=== PATIENT | female | born 1935 | race Caucasian/White ===

== ENCOUNTER 2016-06-24 08:10 | Inpatient (IN) | payer MEDICARE, OTHER ==
[2016-06-24] VITALS (7 sets, daily range): BP systolic 124–173; BP diastolic 68–79; PULSE 62–69; RESP 18–20; Ht 170.2 cm; Wt 90.4 kg
[~2016-06-24] VITALS: Ht 170.2 cm; Wt 90.4 kg
[~2016-06-24 08:10] MED LIST: GLIM4TAB PO; LEVE500T8 PO; METO50TA16 PO; NATE60TA PO; SIMV20TA6 PO
[2016-06-24] MEDS ORDERED: ONDANSETRON 4 MG INJ IV PRN (12:00)
[2016-06-24] MEDS ORDERED: morphine 2 MG INJ IV PRN (12:00)
--- NOTE | 2016-06-24 12:34 | QN ---
Documentation Comment [facility] I was called about this patient this am for ? increased weakness on the left and left lower extremity 'tremor'. CT was performed and showed a tiny (<5mm) focus of hyperdensity in resection cavity. This was thought to be new; repeat CT this am shows stable hyperdensity (possibly smaller). The tremor is resolved , and family states that the patient's left sided complaints are at her baseline. She was transferred to telemetry. In my opinion this small hyperdensity is unlikely to be new and is most likely more visible due to variations in imaging acquisition protocol (ie gantry effect); even if it is a new hemorrhage it is not clinically significant. Furthermore, on follow up imaging it is stable/ unchanged. It might be best to avoid anti-coagulation for 48 hours just in case. She should be seen in follow up by neurology also for possible seizure breakthrough (she is already on Keppra). However, no neurosurgical intervention is contemplated for this patient and from the neurosurgical perspective there is no contraindication to resumption of diet, therapy and/or ARU, etc. Thank you. CHEO BAL MD Jun 24, 2016 12:34
[2016-06-24 13:43] LABS: CALCIUM 8.9 mg/dl (8.4-10.2); CREATININE 0.58 mg/dl (0.44-1.00)
[2016-06-24] MEDS ORDERED: GLUCOSE GEL 15 GRAM TUBE PO PRN ×2 (17:00)
[2016-06-24] MEDS ORDERED: GLUCAGON 1 MG INJ IM PRN (17:00)
[2016-06-24] MEDS ORDERED: GLUCOSE GEL 15 GRAM TUBE BUCCAL PRN (17:00)
[2016-06-24] MEDS ORDERED: DEXTROSE 50% 50 ML SYRINGE IV PRN ×2 (17:00)
[2016-06-24] MEDS: metFORMIN 500 MG TAB PO SCH (17:26)
[2016-06-24] MEDS: NATEGLINIDE 60 MG TAB PO SCH (17:26)
[2016-06-24] MEDS: INSULIN ASPART [NOVOLOG] 3 ML PEN SC SCH ×2 (17:33→20:55)
[2016-06-24] MEDS: ATORVASTATIN 20 MG TAB PO SCH (21:38)
[2016-06-25] VITALS (12 sets, daily range): BP systolic 127–144; BP diastolic 61–71; PULSE 64–67; RESP 20
[2016-06-25] MEDS: ACCUCHECK XX SCH (02:00)
[2016-06-25 07:04] LABS: BASOPHILS % 0.3 % (0.0-2.0); EOSINOPHILS # 0.2 10^3/ul (0.0-0.5); EOSINOPHILS % 1.8 % (0.0-7.0); HEMATOCRIT 37.7 % (37.0-47.0); HEMOGLOBIN 12.5 g/dl (12.0-16.0); LYMPHOCYTES # 3.1 10^3/ul (0.8-2.9); LYMPHOCYTES % 28.3 % (15.0-51.0); MEAN CORPUSCULAR HEMOGLOBIN 27.7 pg (29.0-33.0); MEAN CORPUSCULAR HGB CONC 33.2 g/dl (32.0-37.0); MEAN CORPUSCULAR VOLUME 83.2 fl (82.0-101.0); MONOCYTE # 0.9 10^3/ul (0.3-0.9); MONOCYTES % 7.7 % (0.0-11.0); NEUTROPHIL # 6.8 10^3/ul (1.6-7.5); NEUTROPHILS % 61.9 % (39.0-77.0); PLATELET COUNT 289 10^3/UL (140-440); RED BLOOD COUNT 4.53 10^6/ul (4.20-5.40); RED CELL DISTRIBUTION WIDTH 17.1 % (11.5-14.5)
[2016-06-25 07:21] LABS: POTASSIUM 4.3 mmol/L (3.5-5.1)
[2016-06-25 07:22] LABS: CONDITION 1; LH ANALYZER COMMENTS 1
[2016-06-25 07:24] LABS: CREATININE 0.68 mg/dl (0.44-1.00)
[2016-06-25 07:25] LABS: CALCIUM 9.1 mg/dl (8.4-10.2)
[2016-06-25] MEDS ORDERED: GLIMEPIRIDE 4 MG TAB PO SCH (07:25)
[2016-06-25] MEDS: metFORMIN 500 MG TAB PO SCH ×2 (08:40→17:47)
[2016-06-25] MEDS: ACETAMINOPHEN 325 MG TAB PO PRN ×2 (08:40→22:40)
[2016-06-25] MEDS: NATEGLINIDE 60 MG TAB PO SCH ×3 (08:41→17:47)
[2016-06-25] MEDS: LEVETIRACETAM 500 MG TAB PO SCH (08:41)
[2016-06-25] MEDS: METOPROLOL (XL) 50 MG TAB PO SCH (08:41)
[2016-06-25] MEDS: INSULIN ASPART [NOVOLOG] 3 ML PEN SC SCH ×4 (08:43→21:00)
--- NOTE | 2016-06-25 12:14 | HP ---
Date/Time of Note Date/Time of Note DATE: 06/25/16 TIME: 12:11 Assessment/Plan VTE Prophylaxis VTE Prophylaxis Intervention: other Lines/Catheters IV C[facility] Type (from [facility] Saline Lock Assessment/Plan Chief Complaint/Hosp Course 1) intracranial hemorrhage - monitor - appreciate neurosurgery input 2) right shoulder pain - check xray of right shoulder - monitor clinically Problems: HPI/ROS Admit Date/Time Admit Date/Time Jun 24, 2016 at 08:10 Hx of Present Illness Patient previously admitted for intracranial mass, s/p biopsy, was sent to acute rehab for debilitation. Patient is transferred back to the acute hospital for increasing headache and evidence of acute intracranial hemorrhage. Patient also complain of right shoulder pain PMH/Family/Social Past Medical History brain tumor, biopsy result pending Past Surgical History Past Surgical Hx: bowel resection, other Social History Smoking Status: Never smoker Exam/Review of Systems Vital Signs Vitals Vital Signs Date Time Temp Pulse Resp B/P Pulse Ox O2 Delivery O2 Flow Rate FiO2 06/25/16 11:23 97.7 65 20 127/61 94 06/24/16 12:00 Room Air Intake and Output 06/24/16 06/24/16 06/25/16 15:00 23:00 07:00 Intake Total 420 ml 100 ml Balance 420 ml 100 ml Exam Constitutional: alert, well developed Head: atraumatic, normocephalic Respiratory: clear to auscultation Cardiovascular: regular rate and rhythm Gastrointestinal: non-tender, soft Extremities: normal pulses Labs Result Diagram: 06/25/16 0603 06/25/16 0603 Medications Medications Current Medications Morphine Sulfate (morphine) 2 mg Q4H PRN IV PAIN; Start 06/24/16 at 12:00 Ondansetron HCl (Zofran Inj) 4 mg Q6H PRN IV NAUSEA AND/OR VOMITING; Start at 12:00 Levetiracetam (Keppra) 500 mg DAILY PO Last administered on 06/25/16 08:41; Admin Dose 500 MG; Start 06/25/16 at 09:00 Metoprolol Succinate (Toprol Xl) 50 mg DAILY PO Last administered on 06/25/16 08:41; Admin Dose 50 MG; Start 06/25/16 at 09:00 Atorvastatin Calcium (Lipitor) 20 mg HS PO Last administered on 06/24/16at 21: 38; Admin Dose 20 MG; Start 06/24/16 at 21:00 Acetaminophen (Tylenol Tab) 650 mg Q6H PRN PO PAIN AND OR ELEVATED TEMP Last administered on 06/25/16t 08:40; Admin Dose 650 MG; Start 06/24/16 at 17:00 Diagnostic Test (Pha) (Accucheck) 1 ea 02 XX ; Start 06/25/16 at 02:00 Miscellaneous Information 1 ea NOTE XX ; Start 06/24/16 at 17:00 Glucose (Glutose) 15 gm Q15M PRN PO DECREASED GLUCOSE; Start 06/24/16 at 17:00 Glucose (Glutose) 22.5 gm Q15M PRN PO DECREASED GLUCOSE; Start 06/24/16 at 17: 00 Dextrose (D50w Syringe) 25 ml Q15M PRN IV DECREASED GLUCOSE; Start 06/24/16 at 17:00 Dextrose (D50w Syringe) 50 ml Q15M PRN IV DECREASED GLUCOSE; Start 06/24/16 at 17:00 Glucagon (Glucagen) 1 mg Q15M PRN IM DECREASED GLUCOSE; Start 06/24/16 at 17: 00 Glucose (Glutose) 15 gm Q15M PRN BUCCAL DECREASED GLUCOSE; Start 06/24/16 at 17:00 LEIGHANN DAHL Jun 25, 2016 12:13
--- NOTE | 2016-06-25 18:11 | RADRPT ---
PROCEDURE: XR right Shoulder. CLINICAL INDICATION: Pain TECHNIQUE: 3 views of the right shoulder are available for review. COMPARISON: None available FINDINGS: There is no acute fracture or dislocation. The glenohumeral and acromioclavicular joints are intact . There is mild joint space narrowing with osseous spurring of the acromioclavicular joint. A later al downsloping morphology of the acromion is visualized. There are small calcific densities adjacent to the greater tuberosity of the humeral head measuring up to 7 mm likely corresponding with small foci of hydroxyapatite deposition. The soft tissues are u nremarkable. There is no fracture of the visualized right ribs. The visualized right lung is clear. RPTAT: EE IMPRESSION: 1. No acute bony abnormality. 2. Small foci of hydroxyapatite deposition adjacent to the greater tuberosity of the humeral head m easuring up to 7 mm. 3. Mild osteoarthrosis of the acromioclavicular joint.. .Lily Morales MD, MD Date Time Electronically viewed and signed by .Lily Morales MD, on 06/25/2016 17:02 .T/
[2016-06-25] MEDS: ATORVASTATIN 20 MG TAB PO SCH (20:57)
[2016-06-26] VITALS (10 sets, daily range): BP systolic 130–175; BP diastolic 72–89; PULSE 66–77; RESP 18–20
[2016-06-26] MEDS: ACCUCHECK XX SCH (02:00)
[2016-06-26] MEDS ORDERED: traMADol 50 MG TAB PO PRN (08:30)
[2016-06-26] MEDS: metFORMIN 500 MG TAB PO SCH ×2 (08:39→17:20)
[2016-06-26] MEDS: NATEGLINIDE 60 MG TAB PO SCH ×3 (08:39→17:20)
[2016-06-26] MEDS: METOPROLOL (XL) 50 MG TAB PO SCH (08:40)
[2016-06-26] MEDS: LEVETIRACETAM 500 MG TAB PO SCH (08:40)
[2016-06-26] MEDS: INSULIN ASPART [NOVOLOG] 3 ML PEN SC SCH ×4 (09:24→20:53)
--- NOTE | 2016-06-26 13:16 | PN ---
Date/Time of Note Date/Time of Note DATE: 06/26/16 TIME: 13:15 Assessment/Plan VTE Prophylaxis VTE Prophylaxis Intervention: contraindicated Lines/Catheters IV Catheter Type (from Nrsg): Saline Lock Urinary Cath still in place: No Reason Cath still needed: skin wounds contaminated by urine Assessment/Plan Chief Complaint/Hosp Course 1) intracranial hemorrhage - monitor - appreciate neurosurgery input - consult neurology per neurosurgery 2) right shoulder pain - XRAY show no abnormality - monitor clinically Problems: Subjective 24 Hr Interval Summary Free Text/Dictation Patient is doing fine, has no complaints Exam/Review of Systems Vital Signs Vitals Vital Signs Date Time Temp Pulse Resp B/P Pulse Ox O2 Delivery O2 Flow Rate FiO2 06/26/16 12:08 73 06/26/16 12:02 98.0 18 175/89 98 06/24/16 12:00 Room Air Intake and Output 06/25/16 06/25/16 06/26/16 15:00 23:00 07:00 Intake Total 720 ml 120 ml Balance 720 ml 120 ml Exam Constitutional: alert, well developed Neck: supple Respiratory: clear to auscultation Cardiovascular: regular rate and rhythm Gastrointestinal: non-tender, soft Results Result Diagram: 06/25/16 0603 06/25/16 0603 Results 24 hrs Laboratory Tests Test 06/25/16 17:08 06/25/16 21:03 06/26/16 08:37 06/26/16 12:16 Bedside Glucose 151 169 181 223 H Medications Medications Current Medications Morphine Sulfate (morphine) 2 mg Q4H PRN IV PAIN; Start 06/24/16 at 12:00 Ondansetron HCl (Zofran Inj) 4 mg Q6H PRN IV NAUSEA AND/OR VOMITING; Start at 12:00 Levetiracetam (Keppra) 500 mg DAILY PO Last administered on 06/26/16 08:40; Admin Dose 500 MG; Start 06/25/16 at 09:00 Metoprolol Succinate (Toprol Xl) 50 mg DAILY PO Last administered on 06/26/16 08:40; Admin Dose 50 MG; Start 06/25/16 at 09:00 Atorvastatin Calcium (Lipitor) 20 mg HS PO Last administered on 06/25/16 20:57 ; Admin Dose 20 MG; Start 06/24/16 at 21:00 Acetaminophen (Tylenol Tab) 650 mg Q6H PRN PO PAIN AND OR ELEVATED TEMP Last administered on 06/25/16 22:40; Admin Dose 650 MG; Start 06/24/16 at 17:00 Diagnostic Test (Pha) (Accucheck) 1 ea 02 XX ; Start 06/25/16 at 02:00 Miscellaneous Information 1 ea NOTE XX ; Start 06/24/16 at 17:00 Glucose (Glutose) 15 gm Q15M PRN PO DECREASED GLUCOSE; Start 06/24/16 at 17:00 Glucose (Glutose) 22.5 gm Q15M PRN PO DECREASED GLUCOSE; Start 06/24/16 at 17: 00 Dextrose (D50w Syringe) 25 ml Q15M PRN IV DECREASED GLUCOSE; Start 06/24/16 at 17:00 Dextrose (D50w Syringe) 50 ml Q15M PRN IV DECREASED GLUCOSE; Start 06/24/16 at 17:00 Glucagon (Glucagen) 1 mg Q15M PRN IM DECREASED GLUCOSE; Start 06/24/16 at 17: 00 Glucose (Glutose) 15 gm Q15M PRN BUCCAL DECREASED GLUCOSE; Start 06/24/16 at 17:00 Tramadol HCl (Ultram) 50 mg Q6H PRN PO PAIN Last administered on 06/26/16 08:46 ; Admin Dose 50 MG; Start 06/26/16 at 08:30 LEIGHANN DAHL Jun 26, 2016 13:16
[2016-06-26] MEDS: ATORVASTATIN 20 MG TAB PO SCH (20:50)
[2016-06-27] VITALS (12 sets, daily range): BP systolic 128–157; BP diastolic 66–82; PULSE 70–88; RESP 18–21
[2016-06-27] MEDS: ACCUCHECK XX SCH (02:00)
[2016-06-27] MEDS: metFORMIN 500 MG TAB PO SCH ×2 (08:40→17:11)
[2016-06-27] MEDS: NATEGLINIDE 60 MG TAB PO SCH ×3 (08:40→17:11)
[2016-06-27] MEDS: LEVETIRACETAM 500 MG TAB PO SCH (08:40)
[2016-06-27] MEDS: METOPROLOL (XL) 50 MG TAB PO SCH (08:41)
[2016-06-27] MEDS: INSULIN ASPART [NOVOLOG] 3 ML PEN SC SCH ×4 (08:44→22:17)
--- NOTE | 2016-06-27 12:20 | PN ---
Date/Time of Note Date/Time of Note DATE: 06/27/16 TIME: 12:19 Assessment/Plan VTE Prophylaxis VTE Prophylaxis Intervention: other Lines/Catheters IV Catheter Type (from [facility] Saline Lock Urinary Cath still in place: No Assessment/Plan Chief Complaint/Hosp Course 1) intracranial hemorrhage - monitor - appreciate neurosurgery input - consult neurology per neurosurgery 2) right shoulder pain - XRAY show no abnormality - monitor clinically Problems: Subjective 24 Hr Interval Summary Free Text/Dictation Patient has no complaints Exam/Review of Systems Vital Signs Vitals Vital Signs Date Time Temp Pulse Resp B/P Pulse Ox O2 Delivery O2 Flow Rate FiO2 06/27/16 12:11 88 06/27/16 12:05 98.3 21 130/72 95 06/24/16 12:00 Room Air Intake and Output 06/26/16 06/26/16 06/27/16 15:00 23:00 07:00 Intake Total 700 ml Output Total 1200 ml Balance -500 ml Exam Constitutional: well developed Head: atraumatic, normocephalic Neck: supple Respiratory: clear to auscultation Cardiovascular: regular rate and rhythm Gastrointestinal: non-tender, soft Results Result Diagram: 06/25/16 0603 06/25/16 0603 Results 24 hrs Laboratory Tests Test 06/26/16 17:19 06/26/16 20:53 06/27/16 07:26 06/27/16 11:45 Bedside Glucose 88 161 220 268 H Medications Medications Current Medications Morphine Sulfate (morphine) 2 mg Q4H PRN IV PAIN; Start 06/24/16 at 12:00 Ondansetron HCl (Zofran Inj) 4 mg Q6H PRN IV NAUSEA AND/OR VOMITING; Start at 12:00 Levetiracetam (Keppra) 500 mg DAILY PO Last administered on 06/27/16 08:40; Admin Dose 500 MG; Start 06/25/16 at 09:00 Metoprolol Succinate (Toprol Xl) 50 mg DAILY PO Last administered on 06/27/16 08:41; Admin Dose 50 MG; Start 06/25/16 at 09:00 Atorvastatin Calcium (Lipitor) 20 mg HS PO Last administered on 06/26/16 20:50 ; Admin Dose 20 MG; Start 06/24/16 at 21:00 Acetaminophen (Tylenol Tab) 650 mg Q6H PRN PO PAIN AND OR ELEVATED TEMP Last administered on 06/25/16 22:40; Admin Dose 650 MG; Start 06/24/16 at 17:00 Diagnostic Test (Pha) (Accucheck) 1 ea 02 XX ; Start 06/25/16 at 02:00 Miscellaneous Information 1 ea NOTE XX ; Start 06/24/16 at 17:00 Glucose (Glutose) 15 gm Q15M PRN PO DECREASED GLUCOSE; Start 06/24/16 at 17:00 Glucose (Glutose) 22.5 gm Q15M PRN PO DECREASED GLUCOSE; Start 06/24/16 at 17: 00 Dextrose (D50w Syringe) 25 ml Q15M PRN IV DECREASED GLUCOSE; Start 06/24/16 at 17:00 Dextrose (D50w Syringe) 50 ml Q15M PRN IV DECREASED GLUCOSE; Start 06/24/16 at 17:00 Glucagon (Glucagen) 1 mg Q15M PRN IM DECREASED GLUCOSE; Start 06/24/16 at 17: 00 Glucose (Glutose) 15 gm Q15M PRN BUCCAL DECREASED GLUCOSE; Start 06/24/16 at 17:00 Tramadol HCl (Ultram) 50 mg Q6H PRN PO PAIN Last administered on 06/26/16 08:46 ; Admin Dose 50 MG; Start 06/26/16 at 08:30 LEIGHANN DAHL Jun 27, 2016 12:20
[2016-06-27] MEDS: ACETAMINOPHEN 325 MG TAB PO PRN (12:41)
[2016-06-27] MEDS: ATORVASTATIN 20 MG TAB PO SCH (21:24)
[2016-06-27] MEDS: LEVETIRACETAM 250 MG TAB PO SCH (21:24)
[2016-06-28] VITALS (13 sets, daily range): BP systolic 112–130; BP diastolic 54–75; PULSE 73–90; RESP 20–21
[2016-06-28] MEDS: ACCUCHECK XX SCH (02:25)
--- NOTE | 2016-06-28 06:42 | CONS ---
DATE OF ADMISSION: 06/24/2016 DATE OF CONSULTATION: REFERRING PHYSICIAN: ____ Thank you for asking me to see the patient with you. HISTORY OF PRESENT ILLNESS: The patient is an 81-year-old female with a past medical history of int racranial bleed with underlying tumor. The patient has a past medical history of cancer, breast. T he patient had a biopsy by neurosurgeon ____ carcinoma. The patient had seizure in the last week wh ich her son was concerned about, and ____ her for more evaluation and treatment. CURRENT MEDICATIONS: Include Keppra 500 mg twice a day, the rest per medication reconciliation dilipe rachel. PAST MEDICAL HISTORY: Includes diabetes; cancer, her breast; brain tumor with bleeding. PHYSICAL EXAMINATION: GENERAL: On exam today, the patient is alert, awake, oriented to time, place and person. Normal sp eech and normal language. CRANIAL NERVES: Cranial nerve II: Pupils equal both sides, reactive to light. Cranial nerves III, IV and : Extraocular muscles intact. Cranial nerve V: Equal sensation to face ____. Cranial n erve VII: Symmetrical face. Cranial nerve VIII: Decreased hearing bilaterally. Cranial nerves IX and X: Elevates palate. Cranial nerve XI: Elevates shoulder ____. Cranial nerve XII: Straight tongue. MOTOR: Decreased right hand clerical adviser, 4+/5. Sensation decreased for glove and sock area for light touc h and temperature. COORDINATION: [id number] test intact. HEART: Regular rate and rhythm. LUNGS: Equal breath sounds. ABDOMEN: Soft ____ nondistended. No tenderness. ASSESSMENT AND PLAN: 1. This patient is ____ years old with cancer of her brain with intracranial bleed. I am going to add for her increase the Keppra from 500 mg to 750 mg, ____ 250 mg twice a day besides the 500 mg sh e takes and follow up the patient with electroencephalogram for more evaluation and treatment. 2. The patient has underlying brain tumor with ____ recommend the patient to be on Decadron. We parnell ve already discussed that with the son and the family. They refuse the cortisone because of side ef fects. We should respect the patient's family and wishes. 3. Left-sided weakness ____ physical therapy and occupational therapy. Family waiting for acute re hab bed for more treatment and ____ radiation down the road. Again, thank you, ____, for asking me to see the patient with you. Dictated By: KAREEM MANTILLA/PRIYA Conf#: [id number] DID#: [id number]
[2016-06-28] MEDS: NATEGLINIDE 60 MG TAB PO SCH ×3 (07:37→17:10)
[2016-06-28] MEDS: metFORMIN 500 MG TAB PO SCH ×2 (07:37→17:10)
[2016-06-28] MEDS: METOPROLOL (XL) 50 MG TAB PO SCH (07:58)
[2016-06-28] MEDS: LEVETIRACETAM 250 MG TAB PO SCH ×2 (07:58→20:23)
[2016-06-28] MEDS: INSULIN ASPART [NOVOLOG] 3 ML PEN SC SCH ×4 (08:15→20:37)
--- NOTE | 2016-06-28 12:13 | PN ---
Date/Time of Note Date/Time of Note DATE: 06/28/16 TIME: 12:12 Assessment/Plan VTE Prophylaxis VTE Prophylaxis Intervention: other Lines/Catheters IV Catheter Type (from [facility]): Saline Lock Urinary Cath still in place: No Assessment/Plan Chief Complaint/Hosp Course 1) intracranial hemorrhage - monitor - appreciate neurology and neurosurgery input 2) right shoulder pain - XRAY show no abnormality - monitor clinically Problems: Subjective 24 Hr Interval Summary Free Text/Dictation Patient has no complaints Exam/Review of Systems Vital Signs Vitals Vital Signs Date Time Temp Pulse Resp B/P Pulse Ox O2 Delivery O2 Flow Rate FiO2 06/28/16 11:46 98.0 78 20 128/64 93 06/24/16 12:00 Room Air Intake and Output 06/27/16 06/27/16 06/28/16 15:00 23:00 07:00 Intake Total 120 ml 840 ml 400 ml Output Total 350 ml Balance -230 ml 840 ml 400 ml Exam Constitutional: well developed Head: atraumatic, normocephalic Neck: supple Respiratory: clear to auscultation Cardiovascular: regular rate and rhythm Gastrointestinal: non-tender, soft Results Result Diagram: 06/25/16 0603 06/25/16 0603 Results 24 hrs Laboratory Tests Test 06/27/16 17:48 06/27/16 21:30 06/28/16 02:26 06/28/16 08:02 Bedside Glucose 135 225 H 169 200 Test 06/28/16 11:37 Bedside Glucose 207 Medications Medications Current Medications Morphine Sulfate (morphine) 2 mg Q4H PRN IV PAIN; Start 06/24/16 at 12:00 Ondansetron HCl (Zofran Inj) 4 mg Q6H PRN IV NAUSEA AND/OR VOMITING; Start at 12:00 Metoprolol Succinate (Toprol Xl) 50 mg DAILY PO Last administered on 06/28/16 07:58; Admin Dose 50 MG; Start 06/25/16 at 09:00 Atorvastatin Calcium (Lipitor) 20 mg HS PO Last administered on 06/27/16 21:24 ; Admin Dose 20 MG; Start 06/24/16 at 21:00 Acetaminophen (Tylenol Tab) 650 mg Q6H PRN PO PAIN AND OR ELEVATED TEMP Last administered on 06/27/16 12:41; Admin Dose 650 MG; Start 06/24/16 at 17:00 Diagnostic Test (Pha) (Accucheck) 1 ea 02 XX Last administered on 06/28/16 02: 25; Admin Dose 1 EA; Start 06/25/16 at 02:00 Miscellaneous Information 1 ea NOTE XX ; Start 06/24/16 at 17:00 Glucose (Glutose) 15 gm Q15M PRN PO DECREASED GLUCOSE; Start 06/24/16 at 17:00 Glucose (Glutose) 22.5 gm Q15M PRN PO DECREASED GLUCOSE; Start 06/24/16 at 17: 00 Dextrose (D50w Syringe) 25 ml Q15M PRN IV DECREASED GLUCOSE; Start 06/24/16 at 17:00 Dextrose (D50w Syringe) 50 ml Q15M PRN IV DECREASED GLUCOSE; Start 06/24/16 at 17:00 Glucagon (Glucagen) 1 mg Q15M PRN IM DECREASED GLUCOSE; Start 06/24/16 at 17: 00 Glucose (Glutose) 15 gm Q15M PRN BUCCAL DECREASED GLUCOSE; Start 06/24/16 at 17:00 Tramadol HCl (Ultram) 50 mg Q6H PRN PO PAIN Last administered on 06/26/16 08:46 ; Admin Dose 50 MG; Start 06/26/16 at 08:30 Levetiracetam (Keppra) 750 mg BID PO Last administered on 06/28/16 07:58; Admin Dose 750 MG; Start 06/27/16 at 21:00 LEIGHANN DAHL Jun 28, 2016 12:13
[2016-06-28] MEDS: ATORVASTATIN 20 MG TAB PO SCH (20:22)
[2016-06-29] VITALS (11 sets, daily range): BP systolic 125–139; BP diastolic 67–80; PULSE 65–91; RESP 18–21
[2016-06-29] MEDS: ACCUCHECK XX SCH (02:00)
[2016-06-29] MEDS: INSULIN ASPART [NOVOLOG] 3 ML PEN SC SCH ×4 (08:26→20:42)
[2016-06-29] MEDS: metFORMIN 500 MG TAB PO SCH ×2 (08:30→18:13)
[2016-06-29] MEDS: METOPROLOL (XL) 50 MG TAB PO SCH (08:30)
[2016-06-29] MEDS: LEVETIRACETAM 250 MG TAB PO SCH ×2 (08:30→20:27)
[2016-06-29] MEDS: NATEGLINIDE 60 MG TAB PO SCH ×3 (08:30→18:14)
--- NOTE | 2016-06-29 12:19 | PN ---
Date/Time of Note Date/Time of Note DATE: 06/29/16 TIME: 12:19 Assessment/Plan VTE Prophylaxis VTE Prophylaxis Intervention: contraindicated Lines/Catheters IV [facility]from [facility] Saline Lock Urinary Cath still in place: No Assessment/Plan Chief Complaint/Hosp Course 1) intracranial hemorrhage - monitor - appreciate neurology and neurosurgery input 2) right shoulder pain - XRAY show no abnormality - monitor clinically Problems: Subjective 24 Hr Interval Summary Free Text/Dictation Patient has no complaints Exam/Review of Systems Vital Signs Vitals Vital Signs Date Time Temp Pulse Resp B/P Pulse Ox O2 Delivery O2 Flow Rate FiO2 06/29/16 12:15 84 06/29/16 11:41 97.0 18 128/72 97 Intake and Output 06/28/16 06/28/16 06/29/16 15:00 23:00 07:00 Intake Total 840 ml 400 ml Balance 840 ml 400 ml Exam Constitutional: well developed Head: atraumatic, normocephalic Neck: supple Respiratory: clear to auscultation Cardiovascular: regular rate and rhythm Gastrointestinal: non-tender, soft Extremities: normal pulses Results Result Diagram: 06/25/16 0603 06/25/16 0603 Results 24 hrs Laboratory Tests Test 06/28/16 17:57 06/28/16 20:19 06/29/16 02:02 06/29/16 08:18 Bedside Glucose 301 H 249 H 255 H 187 Medications Medications Current Medications Morphine Sulfate (morphine) 2 mg Q4H PRN IV PAIN; Start 06/24/16 at 12:00 Ondansetron HCl (Zofran Inj) 4 mg Q6H PRN IV NAUSEA AND/OR VOMITING; Start at 12:00 Metoprolol Succinate (Toprol Xl) 50 mg DAILY PO Last administered on 06/29/16 08:30; Admin Dose 50 MG; Start 06/25/16 at 09:00 Atorvastatin Calcium (Lipitor) 20 mg HS PO Last administered on 06/28/16 20:22 ; Admin Dose 20 MG; Start 06/24/16 at 21:00 Acetaminophen (Tylenol Tab) 650 mg Q6H PRN PO PAIN AND OR ELEVATED TEMP Last administered on 06/27/16 12:41; Admin Dose 650 MG; Start 06/24/16 at 17:00 Diagnostic Test (Pha) (Accucheck) 1 ea 02 XX Last administered on 06/28/16 02: 25; Admin Dose 1 EA; Start 06/25/16 at 02:00 Miscellaneous Information 1 ea NOTE XX ; Start 06/24/16 at 17:00 Glucose (Glutose) 15 gm Q15M PRN PO DECREASED GLUCOSE; Start 06/24/16 at 17:00 Glucose (Glutose) 22.5 gm Q15M PRN PO DECREASED GLUCOSE; Start 06/24/16 at 17: 00 Dextrose (D50w Syringe) 25 ml Q15M PRN IV DECREASED GLUCOSE; Start 06/24/16 at 17:00 Dextrose (D50w Syringe) 50 ml Q15M PRN IV DECREASED GLUCOSE; Start 06/24/16 at 17:00 Glucagon (Glucagen) 1 mg Q15M PRN IM DECREASED GLUCOSE; Start 06/24/16 at 17: 00 Glucose (Glutose) 15 gm Q15M PRN BUCCAL DECREASED GLUCOSE; Start 06/24/16 at 17:00 Tramadol HCl (Ultram) 50 mg Q6H PRN PO PAIN Last administered on 06/26/16 08:46 ; Admin Dose 50 MG; Start 06/26/16 at 08:30 Levetiracetam (Keppra) 750 mg BID PO Last administered on 06/29/16 08:30; Admin Dose 750 MG; Start 06/27/16 at 21:00 LEIGHANN ADHL Jun 29, 2016 12:19
[2016-06-29] MEDS: ATORVASTATIN 20 MG TAB PO SCH (20:27)
[2016-06-30] VITALS (13 sets, daily range): BP systolic 122–144; BP diastolic 62–91; PULSE 65–78; RESP 15–20
[2016-06-30] MEDS: ACCUCHECK XX SCH (01:20)
[2016-06-30] MEDS: metFORMIN 500 MG TAB PO SCH ×2 (07:39→17:32)
[2016-06-30] MEDS: NATEGLINIDE 60 MG TAB PO SCH ×3 (07:39→17:33)
[2016-06-30] MEDS: INSULIN ASPART [NOVOLOG] 3 ML PEN SC SCH ×4 (07:40→21:15)
[2016-06-30] MEDS: METOPROLOL (XL) 50 MG TAB PO SCH (09:17)
[2016-06-30] MEDS: LEVETIRACETAM 250 MG TAB PO SCH ×2 (09:18→21:14)
--- NOTE | 2016-06-30 09:30 | SP ---
DATE OF PROCEDURE: REFERRING PHYSICIAN: Dr. Stoll and . Thank you for asking me to see the patient with you. TECHNIQUE: EEG done using 10-20 International electrode system with photic stimulation. FINDINGS: Bilateral occipital hemisphere view shows alpha wave 8-9 Hz, medium sized, low amplitude, asymmetric bilateral. Photic stimulation done did not elicit . No epileptiform discharge or seizure activity is recorded. IMPRESSION: This is normal electroencephalogram. Normal electroencephalogram does not exclude the clinical history of seizure. Followup EEG maybe needed if clinically indicated. Again, thank you for asking me to see the patient with you. Dictated By: KAREEM MANTILLA/PRIYA Conf#: [id number] DID#: [id number]
--- NOTE | 2016-06-30 14:50 | PN ---
Date/Time of Note Date/Time of Note DATE: 06/30/16 TIME: 14:50 Assessment/Plan VTE Prophylaxis VTE Prophylaxis Intervention: other Lines/Catheters IV Catheter Type (from Nrs): Saline Lock Urinary Cath still in place: No Assessment/Plan Chief Complaint/Hosp Course 1) intracranial hemorrhage - monitor - appreciate neurology and neurosurgery input 2) right shoulder pain - XRAY show no abnormality - monitor clinically Problems: Subjective 24 Hr Interval Summary Free Text/Dictation Has pain in right arm at area of IV line. Denies headache Exam/Review of Systems Vital Signs Vitals Vital Signs Date Time Temp Pulse Resp B/P Pulse Ox O2 Delivery O2 Flow Rate FiO2 06/30/16 12:10 77 06/30/16 11:41 98.1 19 124/69 97 06/30/16 04:00 Room Air Intake and Output 06/29/16 06/29/16 06/30/16 15:00 23:00 07:00 Intake Total 1300 ml 720 ml Balance 1300 ml 720 ml Exam Head: atraumatic, normocephalic Neck: supple Respiratory: clear to auscultation Cardiovascular: regular rate and rhythm Gastrointestinal: non-tender, soft Results Results 24 hrs Laboratory Tests Test 06/29/16 17:50 06/29/16 20:30 06/30/16 01:26 06/30/16 07:35 Bedside Glucose 187 202 184 183 Test 06/30/16 12:02 Bedside Glucose 244 H Medications Medications Current Medications Morphine Sulfate (morphine) 2 mg Q4H PRN IV PAIN; Start 06/24/16 at 12:00 Ondansetron HCl (Zofran Inj) 4 mg Q6H PRN IV NAUSEA AND/OR VOMITING; Start at 12:00 Metoprolol Succinate (Toprol Xl) 50 mg DAILY PO Last administered on 06/30/16 09:17; Admin Dose 50 MG; Start 06/25/16 at 09:00 Atorvastatin Calcium (Lipitor) 20 mg HS PO Last administered on 06/29/16 20:27 ; Admin Dose 20 MG; Start 06/24/16 at 21:00 Acetaminophen (Tylenol Tab) 650 mg Q6H PRN PO PAIN AND OR ELEVATED TEMP Last administered on 06/27/16 12:41; Admin Dose 650 MG; Start 06/24/16 at 17:00 Diagnostic Test (Pha) (Accucheck) 1 ea 02 XX Last administered on 06/30/16 01: 20; Admin Dose 1 EA; Start 06/25/16 at 02:00 Miscellaneous Information 1 ea NOTE XX ; Start 06/24/16 at 17:00 Glucose (Glutose) 15 gm Q15M PRN PO DECREASED GLUCOSE; Start 06/24/16 at 17:00 Glucose (Glutose) 22.5 gm Q15M PRN PO DECREASED GLUCOSE; Start 06/24/16 at 17: 00 Dextrose (D50w Syringe) 25 ml Q15M PRN IV DECREASED GLUCOSE; Start 06/24/16 at 17:00 Dextrose (D50w Syringe) 50 ml Q15M PRN IV DECREASED GLUCOSE; Start 06/24/16 at 17:00 Glucagon (Glucagen) 1 mg Q15M PRN IM DECREASED GLUCOSE; Start 06/24/16 at 17: 00 Glucose (Glutose) 15 gm Q15M PRN BUCCAL DECREASED GLUCOSE; Start 06/24/16 at 17:00 Tramadol HCl (Ultram) 50 mg Q6H PRN PO PAIN Last administered on 06/26/16 08:46 ; Admin Dose 50 MG; Start 06/26/16 at 08:30 Levetiracetam (Keppra) 750 mg BID PO Last administered on 06/30/16 09:18; Admin Dose 750 MG; Start 06/27/16 at 21:00 LEIGHANN DAHL Jun 30, 2016 14:50
[2016-06-30] MEDS: ATORVASTATIN 20 MG TAB PO SCH (21:14)
[2016-07-01] VITALS (11 sets, daily range): BP systolic 115–148; BP diastolic 64–76; PULSE 73–79; RESP 15–20
[2016-07-01] MEDS: ACCUCHECK XX SCH (02:20)
[2016-07-01 06:57] LABS: BASOPHILS % 0.6 % (0.0-2.0); EOSINOPHILS # 0.3 10^3/ul (0.0-0.5); EOSINOPHILS % 4.3 % (0.0-7.0); HEMOGLOBIN 11.8 g/dl (12.0-16.0); LYMPHOCYTES # 2.5 10^3/ul (0.8-2.9); LYMPHOCYTES % 34.2 % (15.0-51.0); MEAN CORPUSCULAR HEMOGLOBIN 27.6 pg (29.0-33.0); MEAN CORPUSCULAR HGB CONC 33.6 g/dl (32.0-37.0); MEAN CORPUSCULAR VOLUME 81.9 fl (82.0-101.0); MONOCYTE # 0.5 10^3/ul (0.3-0.9); MONOCYTES % 6.9 % (0.0-11.0); NEUTROPHIL # 3.9 10^3/ul (1.6-7.5); PLATELET COUNT 292 10^3/UL (140-440); RED BLOOD COUNT 4.28 10^6/ul (4.20-5.40); RED CELL DISTRIBUTION WIDTH 16.9 % (11.5-14.5); UNCORRECTED WBC 7.2 10^3/ul (4.8-10.8); WHITE BLOOD COUNT 7.2 10^3/ul (4.8-10.8)
[2016-07-01 06:59] LABS: CONDITION 1; LH ANALYZER COMMENTS 1
[2016-07-01 07:02] LABS: POTASSIUM 4.2 mmol/L (3.5-5.1)
[2016-07-01 07:05] LABS: CALCIUM 8.7 mg/dl (8.4-10.2); CREATININE 0.64 mg/dl (0.44-1.00)
[2016-07-01] MEDS: INSULIN ASPART [NOVOLOG] 3 ML PEN SC SCH ×4 (07:59→21:19)
[2016-07-01] MEDS: metFORMIN 500 MG TAB PO SCH ×2 (07:59→17:18)
[2016-07-01] MEDS: LEVETIRACETAM 250 MG TAB PO SCH ×2 (07:59→21:04)
[2016-07-01] MEDS: NATEGLINIDE 60 MG TAB PO SCH ×3 (07:59→17:17)
[2016-07-01] MEDS: METOPROLOL (XL) 50 MG TAB PO SCH (08:02)
--- NOTE | 2016-07-01 11:42 | PN ---
Date/Time of Note Date/Time of Note DATE: 07/01/16 TIME: 11:41 Assessment/Plan VTE Prophylaxis VTE Prophylaxis Intervention: other Lines/Catheters IV Catheter Type (from [facility]): Saline Lock Urinary Cath still in place: No Assessment/Plan Chief Complaint/Hosp Course 1) intracranial hemorrhage - monitor - appreciate neurology and neurosurgery input 2) right shoulder pain - XRAY show no abnormality - monitor clinically Problems: Subjective 24 Hr Interval Summary Free Text/Dictation Patient has no complaints Exam/Review of Systems Vital Signs Vitals Vital Signs Date Time Temp Pulse Resp B/P Pulse Ox O2 Delivery O2 Flow Rate FiO2 07/01/16 08:01 98.2 76 18 117/64 97 06/30/16 04:00 Room Air Intake and Output 06/30/16 06/30/16 07/01/16 15:00 23:00 07:00 Intake Total 650 ml 300 ml Balance 650 ml 300 ml Exam Constitutional: well developed Head: atraumatic, normocephalic Neck: supple Cardiovascular: regular rate and rhythm Gastrointestinal: non-tender, soft Results Result Diagram: 07/01/16 0530 07/01/16 0530 Results 24 hrs Laboratory Tests Test 06/30/16 12:02 06/30/16 17:31 06/30/16 21:13 07/01/16 02:05 Bedside Glucose 244 H 154 213 128 Test 07/01/16 05:30 07/01/16 07:56 Anion Gap 16 Basophils # 0.0 Basophils % 0.6 Blood Morphology Comment Blood Urea Nitrogen 15 Calcium Level 8.7 Carbon Dioxide Level 25 Chloride Level 107 Creatinine 0.64 Eosinophils # 0.3 Eosinophils % 4.3 Glucose Level 147 Hematocrit 35.0 L Hemoglobin 11.8 L Lymphocytes # 2.5 Lymphocytes % 34.2 Mean Corpuscular Hemoglobin 27.6 L Mean Corpuscular Hemoglobin Concent 33.6 Mean Corpuscular Volume 81.9 L Mean Platelet Volume 8.0 Monocytes # 0.5 Monocytes % 6.9 Neutrophils # 3.9 Neutrophils % 54.0 Nucleated Red Blood Cells # 0.0 Nucleated Red Blood Cells % 0.0 Platelet Count 292 Potassium Level 4.2 Red Blood Count 4.28 Red Cell Distribution Width 16.9 H Sodium Level 144 White Blood Count 7.2 # Bedside Glucose 240 H Medications Medications Current Medications Morphine Sulfate (morphine) 2 mg Q4H PRN IV PAIN; Start 06/24/16 at 12:00 Ondansetron HCl (Zofran Inj) 4 mg Q6H PRN IV NAUSEA AND/OR VOMITING; Start at 12:00 Metoprolol Succinate (Toprol Xl) 50 mg DAILY PO Last administered on 07/01/16 08:02; Admin Dose 50 MG; Start 06/25/16 at 09:00 Atorvastatin Calcium (Lipitor) 20 mg HS PO Last administered on 06/30/16 21:14 ; Admin Dose 20 MG; Start 06/24/16 at 21:00 Acetaminophen (Tylenol Tab) 650 mg Q6H PRN PO PAIN AND OR ELEVATED TEMP Last administered on 06/27/16 12:41; Admin Dose 650 MG; Start 06/24/16 at 17:00 Diagnostic Test (Pha) (Accucheck) 1 ea 02 XX Last administered on 07/01/16 02: 20; Admin Dose 1 EA; Start 06/25/16 at 02:00 Miscellaneous Information 1 ea NOTE XX ; Start 06/24/16 at 17:00 Glucose (Glutose) 15 gm Q15M PRN PO DECREASED GLUCOSE; Start 06/24/16 at 17:00 Glucose (Glutose) 22.5 gm Q15M PRN PO DECREASED GLUCOSE; Start 06/24/16 at 17: 00 Dextrose (D50w Syringe) 25 ml Q15M PRN IV DECREASED GLUCOSE; Start 06/24/16 at 17:00 Dextrose (D50w Syringe) 50 ml Q15M PRN IV DECREASED GLUCOSE; Start 06/24/16 at 17:00 Glucagon (Glucagen) 1 mg Q15M PRN IM DECREASED GLUCOSE; Start 06/24/16 at 17: 00 Glucose (Glutose) 15 gm Q15M PRN BUCCAL DECREASED GLUCOSE; Start 06/24/16 at 17:00 Tramadol HCl (Ultram) 50 mg Q6H PRN PO PAIN Last administered on 06/26/16 08:46 ; Admin Dose 50 MG; Start 06/26/16 at 08:30 Levetiracetam (Keppra) 750 mg BID PO Last administered on 07/01/16 07:59; Admin Dose 750 MG; Start 06/27/16 at 21:00 LEIGHANN DAHL Jul 01, 2016 11:42
[2016-07-01] MEDS: ATORVASTATIN 20 MG TAB PO SCH (21:04)
[2016-07-02] VITALS (12 sets, daily range): BP systolic 122–145; BP diastolic 67–84; PULSE 64–78; RESP 16–20
[2016-07-02] MEDS: ACCUCHECK XX SCH (02:13)
[2016-07-02] MEDS: INSULIN ASPART [NOVOLOG] 3 ML PEN SC SCH ×4 (07:37→21:22)
[2016-07-02] MEDS: NATEGLINIDE 60 MG TAB PO SCH ×3 (07:37→17:19)
[2016-07-02] MEDS: metFORMIN 500 MG TAB PO SCH ×2 (07:39→17:19)
[2016-07-02] MEDS: LEVETIRACETAM 250 MG TAB PO SCH ×2 (08:22→21:17)
[2016-07-02] MEDS: METOPROLOL (XL) 50 MG TAB PO SCH (08:23)
--- NOTE | 2016-07-02 11:38 | PN ---
Date/Time of Note Date/Time of Note DATE: 07/02/16 TIME: 11:37 Assessment/Plan VTE Prophylaxis VTE Prophylaxis Intervention: contraindicated Lines/Catheters IV [facility] Saline Lock Urinary Cath still in place: No Assessment/Plan Chief Complaint/Hosp Course 1) intracranial hemorrhage - monitor - appreciate neurology and neurosurgery input 2) right shoulder pain - XRAY show no abnormality - monitor clinically Problems: Subjective 24 Hr Interval Summary Free Text/Dictation Patient has no complaints but is frustrated Exam/Review of Systems Vital Signs Vitals Vital Signs Date Time Temp Pulse Resp B/P Pulse Ox O2 Delivery O2 Flow Rate FiO2 07/02/16 08:08 70 07/02/16 08:04 97.5 18 145/84 95 Room Air Intake and Output 07/01/16 07/01/16 07/02/16 15:00 23:00 07:00 Intake Total 1180 ml 400 ml Balance 1180 ml 400 ml Exam Constitutional: well developed Head: atraumatic, normocephalic Neck: supple Respiratory: clear to auscultation Cardiovascular: regular rate and rhythm Gastrointestinal: non-tender, soft Extremities: normal pulses Results Result Diagram: 07/01/16 0530 07/01/16 0530 Results 24 hrs Laboratory Tests Test 07/01/16 12:22 07/01/16 17:06 07/01/16 21:08 07/02/16 02:02 Bedside Glucose 210 158 193 146 Test 07/02/16 07:32 07/02/16 11:23 Bedside Glucose 181 285 H Medications Medications Current Medications Morphine Sulfate (morphine) 2 mg Q4H PRN IV PAIN; Start 06/24/16 at 12:00 Ondansetron HCl (Zofran Inj) 4 mg Q6H PRN IV NAUSEA AND/OR VOMITING; Start at 12:00 Metoprolol Succinate (Toprol Xl) 50 mg DAILY PO Last administered on 07/02/16 08:23; Admin Dose 50 MG; Start 06/25/16 at 09:00 Atorvastatin Calcium (Lipitor) 20 mg HS PO Last administered on 07/01/16 21:04 ; Admin Dose 20 MG; Start 06/24/16 at 21:00 Acetaminophen (Tylenol Tab) 650 mg Q6H PRN PO PAIN AND OR ELEVATED TEMP Last administered on 06/27/16 12:41; Admin Dose 650 MG; Start 06/24/16 at 17:00 Diagnostic Test (Pha) (Accucheck) 1 ea 02 XX Last administered on 07/02/16 02: 13; Admin Dose 1 EA; Start 06/25/16 at 02:00 Miscellaneous Information 1 ea NOTE XX ; Start 06/24/16 at 17:00 Glucose (Glutose) 15 gm Q15M PRN PO DECREASED GLUCOSE; Start 06/24/16 at 17:00 Glucose (Glutose) 22.5 gm Q15M PRN PO DECREASED GLUCOSE; Start 06/24/16 at 17: 00 Dextrose (D50w Syringe) 25 ml Q15M PRN IV DECREASED GLUCOSE; Start 06/24/16 at 17:00 Dextrose (D50w Syringe) 50 ml Q15M PRN IV DECREASED GLUCOSE; Start 06/24/16 at 17:00 Glucagon (Glucagen) 1 mg Q15M PRN IM DECREASED GLUCOSE; Start 06/24/16 at 17: 00 Glucose (Glutose) 15 gm Q15M PRN BUCCAL DECREASED GLUCOSE; Start 06/24/16 at 17:00 Tramadol HCl (Ultram) 50 mg Q6H PRN PO PAIN Last administered on 06/26/16 08:46 ; Admin Dose 50 MG; Start 06/26/16 at 08:30 Levetiracetam (Keppra) 750 mg BID PO Last administered on 07/02/16 08:22; Admin Dose 750 MG; Start 06/27/16 at 21:00 LEIGHANN DAHL Jul 02, 2016 11:38
[2016-07-02] MEDS: ATORVASTATIN 20 MG TAB PO SCH (21:17)
[2016-07-03] VITALS (11 sets, daily range): BP systolic 116–151; BP diastolic 62–77; PULSE 67–80; RESP 18
[2016-07-03] MEDS: ACCUCHECK XX SCH (02:00)
[2016-07-03] MEDS: LEVETIRACETAM 250 MG TAB PO SCH ×2 (08:41→20:58)
[2016-07-03] MEDS: METOPROLOL (XL) 50 MG TAB PO SCH (08:41)
[2016-07-03] MEDS: NATEGLINIDE 60 MG TAB PO SCH ×3 (08:42→17:37)
[2016-07-03] MEDS: metFORMIN 500 MG TAB PO SCH ×2 (08:42→17:37)
[2016-07-03] MEDS: INSULIN ASPART [NOVOLOG] 3 ML PEN SC SCH ×4 (08:44→20:59)
[2016-07-03] MEDS ORDERED: NATEGLINIDE 60 MG TAB PO SCH (17:25)
--- NOTE | 2016-07-03 19:05 | PN ---
DATE: 07/03/2016 SUBJECTIVE: Follow up on an 81-year-old female. Patient with history of dural lesion status post b rain biopsy on previous admission with pathology positive for metastatic adenocarcinoma compatible w ith breast primary. Patient with history of breast and colon cancer. The patient was admitted for i ntracranial hemorrhage was evaluated by Dr. Logan in neurosurgery consultation, was not a candidat e for surgery. The patient continued to monitor on telemetry floor. Patient currently is awake, al ert and oriented x3. Good historian, was able to ambulate using walker per patient. Patient with e levated blood sugar today. Denies any nausea, vomiting. Denies any fever, chills. No seizure activ ity per RN. OBJECTIVE: VITAL SIGNS: Temperature is 98.6, pulse is 82, blood pressure 126/77, respiratory rate 18, oxygen s aturation 97% on room air. GENERAL: Well-developed, obese female in no acute distress. HEENT: Head is atraumatic, normocephalic. PERRLA. NECK: Supple. No mass, no thyromegaly. LUNGS: Clear bilaterally. HEART: Normal S1, S2. No murmurs, gallops, clicks, rubs noted. ABDOMEN: Round, soft, nondistended, nontender. CHEST: The patient is status post left mastectomy with breast prosthesis. EXTREMITIES: There is no edema, clubbing, cyanosis. Pulses equal bilaterally 2+. SKIN: There is no rash, petechiae noted. NEUROLOGIC: The patient is awake, alert and oriented x3. ASSESSMENT AND PLAN: 1. Intracranial hemorrhage. Continue to monitor patient's neurological status closely on telemetry floor. The patient is status post evaluation by neurosurgery Dr. Logan. Continue to follow up h is recommendations. 2. Dural lesion with status post biopsy positive for adenocarcinoma. Continue Keppra. The patient is followed by Dr. Ray from neurology standpoint. 3. Hypertension. Continue Toprol. 4. Diabetes mellitus with elevated blood sugars. Continue patient on metformin. Continue 1800 ADA diet. Continue NovoLog per moderate algorithm sliding scale. We will restart patient's home diabe tic medication. 5. History of breast and colon cancer, status post left mastectomy many years ago. The patient is followed with her oncologist. We will obtain physical and occupational consult. Further recommendat ions based on clinical course. Plan of care discussed with Dr. Keating. Dictated By: KELLEE PARK MISCELLANEOUS MACHINE OPERATOR for DIANA KEATING MD SR/NTS Conf#: [id number] DID#: [id number]
[2016-07-03] MEDS: ATORVASTATIN 20 MG TAB PO SCH (20:58)
[2016-07-04] VITALS (8 sets, daily range): BP systolic 145–146; BP diastolic 70–78; PULSE 64–94; RESP 18
[2016-07-04] MEDS: ACCUCHECK XX SCH (02:00)
[2016-07-04] MEDS ORDERED: GLIMEPIRIDE 4 MG TAB PO SCH (07:55)
[2016-07-04] MEDS: NATEGLINIDE 60 MG TAB PO SCH ×3 (08:13→17:42)
[2016-07-04] MEDS: metFORMIN 500 MG TAB PO SCH ×2 (08:14→17:42)
[2016-07-04] MEDS: LEVETIRACETAM 250 MG TAB PO SCH ×2 (08:52→20:42)
[2016-07-04] MEDS: METOPROLOL (XL) 50 MG TAB PO SCH (08:53)
[2016-07-04] MEDS: INSULIN ASPART [NOVOLOG] 3 ML PEN SC SCH ×4 (09:01→20:43)
--- NOTE | 2016-07-04 16:57 | PN ---
Date/Time of Note Date/Time of Note DATE: 07/04/16 TIME: 16:54 Assessment/Plan VTE Prophylaxis VTE Prophylaxis Intervention: SCD's Lines/Catheters IV [facility] Type [facility]from [facility] Saline Lock Urinary Cath still in place: No Assessment/Plan Chief Complaint/Hosp Course ASSESSMENT AND PLAN: 1. Intracranial hemorrhage. Continue to monitor patient's neurological status closely on telemetry floor. The patient is status post evaluation by neurosurgery Dr. Logan. Continue to follow up his recommendations. 2. Dural lesion with status post biopsy positive for adenocarcinoma. Continue Keppra. The patient is followed by Dr. Ray from neurology standpoint. 3. Hypertension. Continue Toprol. 4. Diabetes mellitus with elevated blood sugars. Continue patient on metformin. Continue 1800 ADA diet. Continue NovoLog per moderate algorithm sliding scale. We will restart patient's home diabetic medication. 5. History of breast and colon cancer, status post left mastectomy many years ago. I talked to patient's daughter at the bedside she requested to be evaluated by in-house oncologist. Acute rehab eval. Further recommendations based on clinical course. Plan of care discussed with Dr. Stoll. Problems: Subjective 24 Hr Interval Summary Free Text/Dictation No acute events overnight, patient was able to undergo physical and occupational therapy. Exam/Review of Systems Vital Signs Vitals Vital Signs Date Time Temp Pulse Resp B/P Pulse Ox O2 Delivery O2 Flow Rate FiO2 07/04/16 16:07 94 07/04/16 12:01 97.9 18 146/78 97 07/04/16 08:00 Room Air Intake and Output 07/03/16 07/03/16 07/04/16 15:00 23:00 07:00 Intake Total 300 ml Balance 300 ml Exam GENERAL: Well-developed, obese female in no acute distress. HEENT: Head is atraumatic, normocephalic. PERRLA. NECK: Supple. No mass, no thyromegaly. LUNGS: Clear bilaterally. HEART: Normal S1, S2. No murmurs, gallops, clicks, rubs noted. ABDOMEN: Round, soft, nondistended, nontender. CHEST: The patient is status post left mastectomy with breast prosthesis. EXTREMITIES: There is no edema, clubbing, cyanosis. Pulses equal bilaterally 2 +. SKIN: There is no rash, petechiae noted. NEUROLOGIC: The patient is awake, alert and oriented x3. Results Result Diagram: 07/01/16 0530 07/01/16 0530 Results 24 hrs Laboratory Tests Test 07/03/16 17:33 07/03/16 20:53 07/04/16 02:19 07/04/16 08:12 Bedside Glucose 181 218 159 184 Test 07/04/16 11:34 Bedside Glucose 248 H Medications Medications Current Medications Morphine Sulfate (morphine) 2 mg Q4H PRN IV PAIN; Start 06/24/16 at 12:00 Ondansetron HCl (Zofran Inj) 4 mg Q6H PRN IV NAUSEA AND/OR VOMITING; Start at 12:00 Metoprolol Succinate (Toprol Xl) 50 mg DAILY PO Last administered on 07/04/16 08:53; Admin Dose 50 MG; Start 06/25/16 at 09:00 Atorvastatin Calcium (Lipitor) 20 mg HS PO Last administered on 07/02/16 21:17 ; Admin Dose 20 MG; Start 06/24/16 at 21:00 Acetaminophen (Tylenol Tab) 650 mg Q6H PRN PO PAIN AND OR ELEVATED TEMP Last administered on 06/27/16 12:41; Admin Dose 650 MG; Start 06/24/16 at 17:00 Diagnostic Test (Pha) (Accucheck) 1 ea 02 XX Last administered on 07/03/16 02: 00; Admin Dose 1 EA; Start 06/25/16 at 02:00 Miscellaneous Information 1 ea NOTE XX ; Start 06/24/16 at 17:00 Glucose (Glutose) 15 gm Q15M PRN PO DECREASED GLUCOSE; Start 06/24/16 at 17:00 Glucose (Glutose) 22.5 gm Q15M PRN PO DECREASED GLUCOSE; Start 06/24/16 at 17: 00 Dextrose (D50w Syringe) 25 ml Q15M PRN IV DECREASED GLUCOSE; Start 06/24/16 at 17:00 Dextrose (D50w Syringe) 50 ml Q15M PRN IV DECREASED GLUCOSE; Start 06/24/16 at 17:00 Glucagon (Glucagen) 1 mg Q15M PRN IM DECREASED GLUCOSE; Start 06/24/16 at 17: 00 Glucose (Glutose) 15 gm Q15M PRN BUCCAL DECREASED GLUCOSE; Start 06/24/16 at 17:00 Tramadol HCl (Ultram) 50 mg Q6H PRN PO PAIN Last administered on 06/26/16 08:46 ; Admin Dose 50 MG; Start 06/26/16 at 08:30 Levetiracetam (Keppra) 750 mg BID PO Last administered on 07/04/16 08:52; Admin Dose 750 MG; Start 06/27/16 at 21:00 KELLEE PARK Jul 04, 2016 16:57
[2016-07-04] MEDS: ATORVASTATIN 20 MG TAB PO SCH (20:42)
[2016-07-05] VITALS (12 sets, daily range): BP systolic 124–170; BP diastolic 65–87; PULSE 68–87; RESP 16–21
[2016-07-05] MEDS: ACCUCHECK XX SCH (02:00)
[2016-07-05] MEDS: NATEGLINIDE 60 MG TAB PO SCH ×3 (07:53→17:53)
[2016-07-05] MEDS: metFORMIN 500 MG TAB PO SCH ×2 (07:53→17:14)
[2016-07-05] MEDS: INSULIN ASPART [NOVOLOG] 3 ML PEN SC SCH ×4 (07:58→21:00)
[2016-07-05] MEDS: LEVETIRACETAM 250 MG TAB PO SCH ×2 (09:00→22:09)
[2016-07-05] MEDS: METOPROLOL (XL) 50 MG TAB PO SCH (10:01)
--- NOTE | 2016-07-05 16:23 | PN ---
Date/Time of Note Date/Time of Note DATE: 07/05/16 TIME: 16:22 Assessment/Plan VTE Prophylaxis VTE Prophylaxis Intervention: SCD's Lines/Catheters IV C[facility]ter Type (from [facility]): Saline Lock Urinary Cath still in place: No Assessment/Plan Chief Complaint/Hosp Course ASSESSMENT AND PLAN: 1. Intracranial hemorrhage. Continue to monitor patient's neurological status closely on telemetry floor. The patient is status post evaluation by neurosurgery Dr. Logan. Continue to follow up his recommendations. 2. Dural lesion with status post biopsy positive for adenocarcinoma. Continue Keppra. The patient is followed by Dr. Ray from neurology standpoint. 3. Hypertension. Continue Toprol. 4. Diabetes mellitus with elevated blood sugars. Continue patient on metformin. Continue 1800 ADA diet. Continue NovoLog per moderate algorithm sliding scale. We will restart patient's home diabetic medication. 5. History of breast and colon cancer, status post left mastectomy many years ago. I talked to patient's daughter at the bedside she requested to be evaluated by in-house oncologist. Dr Hernandez is asked to see pt in oncology consultation. Acute rehab eval. Further recommendations based on clinical course. Plan of care discussed with Dr. Stoll. Problems: Subjective 24 Hr Interval Summary Free Text/Dictation No acute events overnight, patient looks comfortable. Exam/Review of Systems Vital Signs Vitals Vital Signs Date Time Temp Pulse Resp B/P Pulse Ox O2 Delivery O2 Flow Rate FiO2 07/05/16 14:06 98.3 78 18 139/69 94 Room Air Intake and Output 07/04/16 07/04/16 07/05/16 15:00 23:00 07:00 Intake Total 600 ml 700 ml Balance 600 ml 700 ml Exam GENERAL: Well-developed, obese female in no acute distress. HEENT: Head is atraumatic, normocephalic. PERRLA. NECK: Supple. No mass, no thyromegaly. LUNGS: Clear bilaterally. HEART: Normal S1, S2. No murmurs, gallops, clicks, rubs noted. ABDOMEN: Round, soft, nondistended, nontender. CHEST: The patient is status post left mastectomy with breast prosthesis. EXTREMITIES: There is no edema, clubbing, cyanosis. Pulses equal bilaterally 2 +. SKIN: There is no rash, petechiae noted. NEUROLOGIC: The patient is awake, alert and oriented x3. Results Result Diagram: 07/01/16 0530 07/01/16 0530 Results 24 hrs Laboratory Tests Test 07/04/16 17:38 07/04/16 20:40 07/05/16 00:33 07/05/16 07:44 Bedside Glucose 193 194 159 171 Test 07/05/16 11:56 Bedside Glucose 253 H Medications Medications Current Medications Morphine Sulfate (morphine) 2 mg Q4H PRN IV PAIN; Start 06/24/16 at 12:00 Ondansetron HCl (Zofran Inj) 4 mg Q6H PRN IV NAUSEA AND/OR VOMITING; Start at 12:00 Metoprolol Succinate (Toprol Xl) 50 mg DAILY PO Last administered on 07/05/16 10:01; Admin Dose 50 MG; Start 06/25/16 at 09:00 Atorvastatin Calcium (Lipitor) 20 mg HS PO Last administered on 07/04/16 20:42 ; Admin Dose 20 MG; Start 06/24/16 at 21:00 Acetaminophen (Tylenol Tab) 650 mg Q6H PRN PO PAIN AND OR ELEVATED TEMP Last administered on 06/27/16 12:41; Admin Dose 650 MG; Start 06/24/16 at 17:00 Diagnostic Test (Pha) (Accucheck) 1 ea 02 XX Last administered on 07/03/16 02: 00; Admin Dose 1 EA; Start 06/25/16 at 02:00 Miscellaneous Information 1 ea NOTE XX ; Start 06/24/16 at 17:00 Glucose (Glutose) 15 gm Q15M PRN PO DECREASED GLUCOSE; Start 06/24/16 at 17:00 Glucose (Glutose) 22.5 gm Q15M PRN PO DECREASED GLUCOSE; Start 06/24/16 at 17: 00 Dextrose (D50w Syringe) 25 ml Q15M PRN IV DECREASED GLUCOSE; Start 06/24/16 at 17:00 Dextrose (D50w Syringe) 50 ml Q15M PRN IV DECREASED GLUCOSE; Start 06/24/16 at 17:00 Glucagon (Glucagen) 1 mg Q15M PRN IM DECREASED GLUCOSE; Start 06/24/16 at 17: 00 Glucose (Glutose) 15 gm Q15M PRN BUCCAL DECREASED GLUCOSE; Start 06/24/16 at 17:00 Tramadol HCl (Ultram) 50 mg Q6H PRN PO PAIN Last administered on 06/26/16 08:46 ; Admin Dose 50 MG; Start 06/26/16 at 08:30 Levetiracetam (Keppra) 750 mg BID PO Last administered on 07/05/16 09:00; Admin Dose 750 MG; Start 06/27/16 at 21:00 KELLEE PARK Jul 05, 2016 16:23
--- NOTE | 2016-07-05 18:27 | CONS ---
Date/Time of Note Date/Time of Note DATE: 07/05/16 TIME: 18:21 Assessment/Plan Assessment/Plan Chief Complaint/Hosp Course The patient is an 81 year old female with a history of colon cancer in 1989 s/p surgery and chemo at [facility], and history of breast cancer s/p mastectomy and chemo in 1999 at [facility] with Dr. Mcclain. 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 # Metastatic breast adenocarcinoma, ER+/WY+/[id number], s/p biopsy of dural lesion 06/16/16, thought not resectable surgically - Plan for radiation 2 weeks post-operatively. Dr. Janny Zhang from radiation oncology will evaluate the patient. - Query whether patient has meningeal carcinomatosis. Though LP negative for malignant cells, often not that sensitive and repeat LPs may be needed to make the diagnosis. Will discuss imaging with radiology. If patient indeed has meningeal carcinomatosis, would consider intrathecal chemotherapy vs. craniospinal irradiation. - CT CAP 06/14/16 with contrast that showed no definite evidence of systemic disease. Would need to repeat restaging scans after radiation complete to determine need for systemic therapy. Will also discuss with Dr. Mcclain. Given location, patient's family plans to follow up with me after discharge. # Small underlying epidural hematoma measuring no more than 3 mm. She was seen by neurosrugery and felt that this small hyperdensity (< 5mm) is unlikely to be new and most likely visible due to variations in imaging acquisition protocol; even if it is new hemorrhage thought not clinically significant per Dr. Logan. It was stable stable/unchanged on follow up imaging. Recommendation was to avoid anticoagulation for 48 hours and follow up with neurology for possible seizure breakthrough. No plan for neurosurgical intervention. I spoke with patient's son Jp ([phone]) and daughter Dakota ) on the phone. Problems: Consultation Date/Type/Reason Admit Date/Time Jun 24, 2016 at 08:10 Date of Consultation: Jul 05, 2016 Type of Consultation: Hematology/Oncology Reason for Consultation Metastatic breast cancer Hx of Present Illness The patient is an 81 year old female with a history of colon cancer in 1989 s/p surgery and chemo at [facility], and history of breast cancer s/p mastectomy and chemo in 1999 at [facility] with Dr. Mcclain. 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 She had a lumbar puncture with no malignant cells found. She underwent craniotomy for biopsy on 06/16/16. Per neurosurgery, not a surgically resectable lesion. Path returned 06/22/16 demonstrating metastatic adenocarcinoma compatible with breast primary, ER 3+ 90%, WY 3+ 80%, HER2 equivocal by IHC but negative by FISH. Plan was for radiation to start 2 weeks post-operatively but patient has not yet been seen by radiation oncology. She also had a CT CAP 06/14/16 with contrast that showed no definite evidence of systemic disease. Patient was discharged to rehab but was re-admitted for left foot movement again. She was found to have a small underlying epidural hematoma measuring no more than 3 mm. She was seen by neurosrugery and felt that this small hyperdensity is unlikely to be new and most likely visible due to variations in imaging acquisition protocol; even if it is new hemorrhage thought not clinically significant per Dr. Logan. It was stable stable/unchanged on follow up imaging. Recommendation was to avoid anticoagulation for 48 hours and follow up with neurology for possible seizure breakthrough. No plan for neurosurgical intervention. Patient is lucid and able to answer my questions though Moroccan somewhat limited. Past Medical History Breast cancer and colon cancer per HPI Past Surgical History Past Surgical Hx: bowel resection, other Family History Significant Family History: no pertinent family hx Social History Alcohol Use: none Smoking Status: Never smoker Exam/Review of Systems Vital Signs Vitals Vital Signs Date Time Temp Pulse Resp B/P Pulse Ox O2 Delivery O2 Flow Rate FiO2 07/05/16 14:06 98.3 78 18 139/69 94 Room Air Intake and Output 07/04/16 07/04/16 07/05/16 15:00 23:00 07:00 Intake Total 600 ml 700 ml Balance 600 ml 700 ml Exam Constitutional: alert, oriented Psych: no complaints Head: normocephalic Neck: non-tender, supple Respiratory: clear to auscultation Cardiovascular: regular rate and rhythm Gastrointestinal: non-tender, soft Musculoskeletal: nl extremities to inspection Neurological: ATG JAVA DEVELOPER II-XII intact, nl strength Results Result Diagram: 07/01/16 0530 07/01/16 0530 Results 24 hrs Laboratory Tests Test 07/04/16 20:40 07/05/16 00:33 07/05/16 07:44 07/05/16 11:56 Bedside Glucose 194 159 171 253 H Test 07/05/16 16:41 Bedside Glucose 125 Medications Medications Current Medications Morphine Sulfate (morphine) 2 mg Q4H PRN IV PAIN; Start 06/24/16 at 12:00 Ondansetron HCl (Zofran Inj) 4 mg Q6H PRN IV NAUSEA AND/OR VOMITING; Start at 12:00 Metoprolol Succinate (Toprol Xl) 50 mg DAILY PO Last administered on 07/05/16 10:01; Admin Dose 50 MG; Start 06/25/16 at 09:00 Atorvastatin Calcium (Lipitor) 20 mg HS PO Last administered on 07/04/16 20:42 ; Admin Dose 20 MG; Start 06/24/16 at 21:00 Acetaminophen (Tylenol Tab) 650 mg Q6H PRN PO PAIN AND OR ELEVATED TEMP Last administered on 06/27/16 12:41; Admin Dose 650 MG; Start 06/24/16 at 17:00 Diagnostic Test (Pha) (Accucheck) 1 ea 02 XX Last administered on 07/03/16 02: 00; Admin Dose 1 EA; Start 06/25/16 at 02:00 Miscellaneous Information 1 ea NOTE XX ; Start 06/24/16 at 17:00 Glucose (Glutose) 15 gm Q15M PRN PO DECREASED GLUCOSE; Start 06/24/16 at 17:00 Glucose (Glutose) 22.5 gm Q15M PRN PO DECREASED GLUCOSE; Start 06/24/16 at 17: 00 Dextrose (D50w Syringe) 25 ml Q15M PRN IV DECREASED GLUCOSE; Start 06/24/16 at 17:00 Dextrose (D50w Syringe) 50 ml Q15M PRN IV DECREASED GLUCOSE; Start 06/24/16 at 17:00 Glucagon (Glucagen) 1 mg Q15M PRN IM DECREASED GLUCOSE; Start 06/24/16 at 17: 00 Glucose (Glutose) 15 gm Q15M PRN BUCCAL DECREASED GLUCOSE; Start 06/24/16 at 17:00 Tramadol HCl (Ultram) 50 mg Q6H PRN PO PAIN Last administered on 06/26/16 08:46 ; Admin Dose 50 MG; Start 06/26/16 at 08:30 Levetiracetam (Keppra) 750 mg BID PO Last administered on 07/05/16 09:00; Admin Dose 750 MG; Start 06/27/16 at 21:00 TOTRACY MD Jul 05, 2016 18:27
--- NOTE | 2016-07-05 21:06 | CONS ---
Date/Time of Note Date/Time of Note DATE: 07/05/16 TIME: 21:05 Assessment/Plan Assessment/Plan Chief Complaint/Hosp Course 81F s/p excisional biopsy of a solitary brain metastasis from the right parietal lobe in 05/2016. The dural based lesion could not be resected in its entirety and adjuvant radiation was recommended. The initial MRI at presentation was concerning for leptomeningeal involvement. On examination today, she is neurologically intact with the exception of mild left lower extremity weakness. Plan: 1) repeat MRI of the brain with and without contrast if tolerated by the patient - please order thin slices for radiation treatment planning purposes - should evidence of LM carcinomatosis exist, then whole brain XRT would be recommended - however, in the absence of any further disease, this patient may be a candidate for focal radiation therapy or radiosurgery 2) consider MRI of the total spine -irradiation of the entire craniospinal axis is associated with substantial morbidity. However, focal deposits of leptomeningeal disease in the spine can be addressed with focal XRT 3) consider initiating dexamethasone and continue antiseizure medication 4) radiation cannot be given concurrently or within several months of intrathecal chemotherapy. Please discuss with radiation oncology prior to planning intrathecal chemotherapy 5) follow up appointment for CT simulation at [facility] on 07/07/2016 @ 3 pm at [id number] [facility] - organized with Meka in case management 6) Family contacts: son Jp ([phone]) and daughter Dakota ([phone]) Problems: Consultation Date/Type/Reason Admit Date/Time Jun 24, 2016 at 08:10 Date of Consultation: Jul 06, 2016 Reason for Consultation Radiation Oncology Referring Provider: TRACY VASQUEZ MD Hx of Present Illness 81 year old female with a history of colon cancer in 1989 s/p surgery and chemo at [facility], and history of breast cancer s/p mastectomy and chemo in 1999 at [facility] with Dr. Mcclain. She has had multiple recent admissions at [facility]. Initially, she presented with involuntary movement and numbness of the left lower extremity on 07/10/2015. An MRI of the brain demonstrated a 1 cm x 0.5 cm enhancing nodule with mild surrounding vasogenic edema in the right parietal lobe, with diffuse irregular linear falx meningeal enhancement. There was irregular linear meningeal enhancement over the right parietal convexity. There was an old lacunar infarct in the left thalamus, as well as mild cerebral atrophy and mild FLAIR/ T2 hyperintensities at the periventricular/subcortical deep white matters, likely microvascular ischemic changes.Cytology from an LP on 06/11/2016 was negative. She underwent an open biopsy of this dural-based lesion on 06/16/2016 , but the lesion was deemed unresectable. Pathology showed metastatic adenocarcinoma consistent with breast primary, ER+/[id number]+/[id number]. The patient was supposed to start XRT within 2 weeks but a Radiation Oncology consultation was not initiated. She was discharged to a SNF, and then readmitted for involuntary movement of the left lower extremity. Imaging demonstrated a small underlying epidural hematoma measuring no more than 3 mm. Per neurosurgery, the lesion was unchanged on follow up imaging and neurosurgical intervention is not needed. Dr Logan recommended avoiding anticoagulation x 48 hours and follow up with neurology as her symptoms may represent seizure breakthrough. Today, the patient states that she continues to feel weak in her left leg. She is able to ambulate with assistance and has been working with physical therapy in the hospital. She denies headaches, nausea, vomiting, dilpopia, blurry vision or focal sensory deficits. She is accompanied by her daughter at the bedside. Constitutional: no complaints Eyes: no complaints ENT: no complaints Respiratory: no complaints Gastrointestinal: no complaints Genitourinary: no complaints Musculoskeletal: other (weakeness in left lower extremity) Skin: no complaints Neurologic: focal-weakness Endocrine: no complaints Lymphatic: no complaints Psychological: no complaints Past Medical History 1. Diabetes mellitus with hyperglycemia. 2. Hypertension. 3. Focal seizure. 4. History of breast carcinoma status post mastectomy. 5. History of colon carcinoma with partial colectomy. 6. History of brain metastases status post craniotomy for excisional biopsy 7. Chronic left thalamic lacunar infarct. Medical History: cancer Past Surgical History 1. History of breast cancer status post mastectomy. 2. History of colon cancer, status post partial colectomy. 3. History of brain metastases, s/p craniotomy for excisional biopsy Past Surgical Hx: bowel resection, other Social History Alcohol Use: none Smoking Status: Never smoker Exam/Review of Systems Vital Signs Vitals Vital Signs Date Time Temp Pulse Resp B/P Pulse Ox O2 Delivery O2 Flow Rate FiO2 07/05/16 14:06 98.3 78 18 139/69 94 Room Air Intake and Output 07/04/16 07/04/16 07/05/16 15:00 23:00 07:00 Intake Total 600 ml 700 ml Balance 600 ml 700 ml Exam Constitutional: alert, oriented Psych: no complaints Head: atraumatic, normocephalic Eyes: EOMI, nl conjunctiva ENMT: nl external ears & nose Neck: non-tender, supple Respiratory: clear to auscultation, normal air movement Gastrointestinal: non-tender, soft Musculoskeletal: nl extremities to inspection, nl gait and stance Neurological: BOOKKEEPER II-XII intact, nl mental status, nl speech, No nl strength (decreased strength in left lower extremity) Results Result Diagram: 07/01/1652907/01/16529 Results 24 hrs Laboratory Tests Test 07/05/16 00:33 07/05/16 07:44 07/05/16 11:56 07/05/16 16:41 Bedside Glucose 159 171 253 H 125 Medications Medications Current Medications Morphine Sulfate (morphine) 2 mg Q4H PRN IV PAIN; Start 06/24/16 at 12:00 Ondansetron HCl (Zofran Inj) 4 mg Q6H PRN IV NAUSEA AND/OR VOMITING; Start at 12:00 Metoprolol Succinate (Toprol Xl) 50 mg DAILY PO Last administered on 07/05/16 10:01; Admin Dose 50 MG; Start 06/25/16 at 09:00 Atorvastatin Calcium (Lipitor) 20 mg HS PO Last administered on 07/04/16 20:42 ; Admin Dose 20 MG; Start 06/24/16 at 21:00 Acetaminophen (Tylenol Tab) 650 mg Q6H PRN PO PAIN AND OR ELEVATED TEMP Last administered on 06/27/16 12:41; Admin Dose 650 MG; Start 06/24/16 at 17:00 Diagnostic Test (Pha) (Accucheck) 1 ea 02 XX Last administered on 07/03/16 02: 00; Admin Dose 1 EA; Start 06/25/16 at 02:00 Miscellaneous Information 1 ea NOTE XX ; Start 06/24/16 at 17:00 Glucose (Glutose) 15 gm Q15M PRN PO DECREASED GLUCOSE; Start 06/24/16 at 17:00 Glucose (Glutose) 22.5 gm Q15M PRN PO DECREASED GLUCOSE; Start 06/24/16 at 17: 00 Dextrose (D50w Syringe) 25 ml Q15M PRN IV DECREASED GLUCOSE; Start 06/24/16 at 17:00 Dextrose (D50w Syringe) 50 ml Q15M PRN IV DECREASED GLUCOSE; Start 06/24/16 at 17:00 Glucagon (Glucagen) 1 mg Q15M PRN IM DECREASED GLUCOSE; Start 06/24/16 at 17: 00 Glucose (Glutose) 15 gm Q15M PRN BUCCAL DECREASED GLUCOSE; Start 06/24/16 at 17:00 Tramadol HCl (Ultram) 50 mg Q6H PRN PO PAIN Last administered on 06/26/16 08:46 ; Admin Dose 50 MG; Start 06/26/16 at 08:30 Levetiracetam (Keppra) 750 mg BID PO Last administered on 07/05/16 09:00; Admin Dose 750 MG; Start 06/27/16 at 21:00 MAXIMILIANO MCCLOUD MD Jul 05, 2016 21:06
[2016-07-05] MEDS: ATORVASTATIN 20 MG TAB PO SCH (22:09)
[2016-07-06] MEDS: ACCUCHECK XX SCH (02:00)
[2016-07-06 07:17] VITALS: BP 135/69; RESP 14
[2016-07-06] MEDS: METOPROLOL (XL) 50 MG TAB PO SCH (08:06)
[2016-07-06] MEDS: LEVETIRACETAM 250 MG TAB PO SCH ×2 (08:06→21:10)
[2016-07-06] MEDS: metFORMIN 500 MG TAB PO SCH ×2 (08:06→16:51)
[2016-07-06] MEDS: NATEGLINIDE 60 MG TAB PO SCH ×3 (08:06→16:51)
[2016-07-06] MEDS: INSULIN ASPART [NOVOLOG] 3 ML PEN SC SCH ×4 (08:09→21:13)
--- NOTE | 2016-07-06 11:49 | CONS ---
Date/Time of Note Date/Time of Note DATE: 07/06/16 TIME: 11:40 Assessment/Plan Assessment/Plan Chief Complaint/Hosp Course The patient is an 81 year old female with a history of colon cancer in 1989 s/p surgery and chemo at [facility], and history of breast cancer s/p mastectomy and chemo in [address] [facility] with Dr. Mcclain. 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 # Metastatic breast adenocarcinoma, ER+/TX+/[id number], s/p excisional biopsy of a solitary brain metastasis from the right parietal lobe 06/16/16, thought not resectable surgically in its entirety. - Plan was for adjuvant radiation 2 weeks post-operatively however radiation oncology consult was not requested prior to this. - Appreciate radiation oncology recommendations from Dr. Janny Zhang - Plan for repeat MRI of the brain with and without contrast tomorrow and MRI of the total spine per Dr. Zhang, with thin slices for radiation treatment planning purposes. Should evidence of LM carcinomatosis exist, then whole brain XRT would be recommended. However, in the absence of any further disease , this patient may be a candidate for focal radiation therapy or radiosurgery - Continue steroids (dexamethasone 4 mg PO Q12 hours per Dr. Zhang) and antiseizure medication. Rx for dexamethasone given to nurse. - Query whether patient has meningeal carcinomatosis. Prior imaging discussed with Dr. Manzano who did see evidence of leptomeningeal enhancement that could be consistent with leptomeningeal disease though not diagnostic. Though LP negative for malignant cells, often not that sensitive and repeat LPs may be needed to make the diagnosis. Will await repeat MRI and MRI of the total spine Per Dr. Zhang, irradiation of the entire craniospinal axis is associated with substantial morbidity. However, focal deposits of leptomeningeal disease in the spine can be addressed with focal XRT - CT CAP 06/14/16 with contrast that showed no definite evidence of systemic disease. Would need to repeat restaging scans, likely with PET/CT, after radiation complete to determine need for systemic therapy. Will also discuss with Dr. Mcclain. Given location, patient's family plans to follow up with me after discharge. Will order tumor markers. - Will request case management auth for outpatient appointment with Dr. Ana Hernandez after discharge and for outpatient PET/CT scan after radiation complete # Small underlying epidural hematoma measuring no more than 3 mm. She was seen by neurosrugery and felt that this small hyperdensity (< 5mm) is unlikely to be new and most likely visible due to variations in imaging acquisition protocol; even if it is new hemorrhage thought not clinically significant per Dr. Logan. It was stable stable/unchanged on follow up imaging. Recommendation was to avoid anticoagulation for 48 hours and follow up with neurology for possible seizure breakthrough. No plan for neurosurgical intervention. I spoke with patient's son Jp ([phone]) and daughter Dakota ([phone]) on the phone. Problems: Consultation Date/Type/Reason Admit Date/Time Jun 28, 2016 at 14:34 Initial Consult Date 07/06/16 Type of Consultation: Hematology/Oncology Referring Provider: TRACY VASQUEZ MD 24 HR Interval Summary Free Text/Dictation Patient doing well, no complaints. Exam/Review of Systems Vital Signs Vitals Vital Signs Date Time Temp Pulse Resp B/P Pulse Ox O2 Delivery O2 Flow Rate FiO2 07/06/16 07:17 97.8 70 14 135/69 93 07/05/16 14:06 Room Air Intake and Output 07/05/16 07/05/16 07/06/16 15:00 23:00 07:00 Intake Total 240 ml 680 ml Balance 240 ml 680 ml Exam Constitutional: alert, oriented Psych: no complaints Head: normocephalic Neck: non-tender, supple Respiratory: clear to auscultation Cardiovascular: regular rate and rhythm Gastrointestinal: non-tender, soft Musculoskeletal: nl extremities to inspection Neurological: APPRENTICESHIP CONSULTANT II-XII intact, nl strength Results Results 24 hrs Laboratory Tests Test 07/05/16 11:56 07/05/16 16:41 07/05/16 21:19 07/06/16 07:49 Bedside Glucose 253 H 125 172 184 Medications Medications Current Medications Morphine Sulfate (morphine) 2 mg Q4H PRN IV PAIN; Start 06/24/16 at 12:00 Ondansetron HCl (Zofran Inj) 4 mg Q6H PRN IV NAUSEA AND/OR VOMITING; Start at 12:00 Metoprolol Succinate (Toprol Xl) 50 mg DAILY PO Last administered on 07/06/16 08:06; Admin Dose 50 MG; Start 06/25/16 at 09:00 Atorvastatin Calcium (Lipitor) 20 mg HS PO Last administered on 07/05/16 22:09 ; Admin Dose 20 MG; Start 06/24/16 at 21:00 Acetaminophen (Tylenol Tab) 650 mg Q6H PRN PO PAIN AND OR ELEVATED TEMP Last administered on 06/27/16 12:41; Admin Dose 650 MG; Start 06/24/16 at 17:00 Diagnostic Test (Pha) (Accucheck) 1 ea 02 XX Last administered on 07/03/16 02: 00; Admin Dose 1 EA; Start 06/25/16 at 02:00 Miscellaneous Information 1 ea NOTE XX ; Start 06/24/16 at 17:00 Glucose (Glutose) 15 gm Q15M PRN PO DECREASED GLUCOSE; Start 06/24/16 at 17:00 Glucose (Glutose) 22.5 gm Q15M PRN PO DECREASED GLUCOSE; Start 06/24/16 at 17: 00 Dextrose (D50w Syringe) 25 ml Q15M PRN IV DECREASED GLUCOSE; Start 06/24/16 at 17:00 Dextrose (D50w Syringe) 50 ml Q15M PRN IV DECREASED GLUCOSE; Start 06/24/16 at 17:00 Glucagon (Glucagen) 1 mg Q15M PRN IM DECREASED GLUCOSE; Start 06/24/16 at 17: 00 Glucose (Glutose) 15 gm Q15M PRN BUCCAL DECREASED GLUCOSE; Start 06/24/16 at 17:00 Tramadol HCl (Ultram) 50 mg Q6H PRN PO PAIN Last administered on 06/26/16 08:46 ; Admin Dose 50 MG; Start 06/26/16 at 08:30 Levetiracetam (Keppra) 750 mg BID PO Last administered on 07/06/16 08:06; Admin Dose 750 MG; Start 06/27/16 at 21:00 TRACY VASQUEZ MD Jul 06, 2016 11:49 TRACY VASQUEZ MD Jul 06, 2016 11:49
[2016-07-06] MEDS: DEXAMETHASONE 4 MG TAB PO SCH ×2 (16:51→22:41)
[2016-07-06 19:55] VITALS: BP 139/76; RESP 16
[2016-07-06] MEDS: ATORVASTATIN 20 MG TAB PO SCH (21:09)
--- NOTE | 2016-07-06 22:11 | PN ---
Date/Time of Note Date/Time of Note DATE: 07/06/16 TIME: 22:06 Assessment/Plan VTE Prophylaxis VTE Prophylaxis Intervention: other Lines/Catheters IV [facility]from [facility]): Saline Lock Urinary Cath still in place: No Assessment/Plan Assessment/Plan 1. Intracranial hemorrhage. Continue to monitor patient's neurological status closely on telemetry floor. The patient is status post evaluation by neurosurgery Dr. Logan. Continue to follow up his recommendations. - MRI in am 2. Dural lesion with status post biopsy positive for adenocarcinoma. Continue Keppra. The patient is followed by Dr. Ray from neurology standpoint. 3. Hypertension. Continue Toprol. 4. Diabetes mellitus with elevated blood sugars. Continue patient on metformin. Continue 1800 ADA diet. Continue NovoLog per moderate algorithm sliding scale. We will restart patient's home diabetic medication. 5. History of breast and colon cancer, status post left mastectomy many years ago. Acute rehab eval. Further recommendations based on clinical course. Plan of care discussed with Dr. Stoll. Subjective 24 Hr Interval Summary Eyes: no complaints ENT: no complaints Respiratory: no complaints Cardiovascular: no complaints Gastrointestinal: no complaints Genitourinary: no complaints Musculoskeletal: no complaints Skin: no complaints Neurologic: no complaints Endocrine: no complaints, polyuria Psychological: no complaints Immunologic: no complaints Exam/Review of Systems Vital Signs Vitals Vital Signs Date Time Temp Pulse Resp B/P Pulse Ox O2 Delivery O2 Flow Rate FiO2 07/06/16 19:55 97.4 79 16 139/76 97 07/05/16 14:06 Room Air Intake and Output 07/05/16 07/05/16 07/06/16 15:00 23:00 07:00 Intake Total 240 ml 680 ml Balance 240 ml 680 ml Exam Constitutional: alert, well developed Psych: nl mood/affect Eyes: nl sclera ENMT: nl external ears & nose Neck: non-tender Respiratory: clear to auscultation Cardiovascular: nl pulses Gastrointestinal: non-tender, soft Results Results 24 hrs Laboratory Tests Test 07/06/16 07:49 07/06/16 11:56 07/06/16 16:50 07/06/16 21:08 Bedside Glucose 184 233 H 140 305 H Medications Medications Current Medications Morphine Sulfate (morphine) 2 mg Q4H PRN IV PAIN; Start 06/24/16 at 12:00 Ondansetron HCl (Zofran Inj) 4 mg Q6H PRN IV NAUSEA AND/OR VOMITING; Start at 12:00 Metoprolol Succinate (Toprol Xl) 50 mg DAILY PO Last administered on 07/06/16 08:06; Admin Dose 50 MG; Start 06/25/16 at 09:00 Atorvastatin Calcium (Lipitor) 20 mg HS PO Last administered on 07/06/16 21:09 ; Admin Dose 20 MG; Start 06/24/16 at 21:00 Acetaminophen (Tylenol Tab) 650 mg Q6H PRN PO PAIN AND OR ELEVATED TEMP Last administered on 06/27/16 12:41; Admin Dose 650 MG; Start 06/24/16 at 17:00 Diagnostic Test (Pha) (Accucheck) 1 ea 02 XX Last administered on 07/03/16 02: 00; Admin Dose 1 EA; Start 06/25/16 at 02:00 Miscellaneous Information 1 ea NOTE XX ; Start 06/24/16 at 17:00 Glucose (Glutose) 15 gm Q15M PRN PO DECREASED GLUCOSE; Start 06/24/16 at 17:00 Glucose (Glutose) 22.5 gm Q15M PRN PO DECREASED GLUCOSE; Start 06/24/16 at 17: 00 Dextrose (D50w Syringe) 25 ml Q15M PRN IV DECREASED GLUCOSE; Start 06/24/16 at 17:00 Dextrose (D50w Syringe) 50 ml Q15M PRN IV DECREASED GLUCOSE; Start 06/24/16 at 17:00 Glucagon (Glucagen) 1 mg Q15M PRN IM DECREASED GLUCOSE; Start 06/24/16 at 17: 00 Glucose (Glutose) 15 gm Q15M PRN BUCCAL DECREASED GLUCOSE; Start 06/24/16 at 17:00 Tramadol HCl (Ultram) 50 mg Q6H PRN PO PAIN Last administered on 06/26/16 08:46 ; Admin Dose 50 MG; Start 06/26/16 at 08:30 Levetiracetam (Keppra) 750 mg BID PO Last administered on 07/06/16 21:10; Admin Dose 750 MG; Start 06/27/16 at 21:00 Dexamethasone (Decadron) 4 mg BID PO Last administered on 07/06/16 16:51; Admin Dose 4 MG; Start 07/06/16 at 15:03 IAN WRIGHT Jul 06, 2016 22:11
[2016-07-07] MEDS ORDERED: ACCUCHECK XX SCH (02:00)
[2016-07-07] MEDS: ACCUCHECK XX SCH (02:00)
[2016-07-07 06:46] LABS: BASOPHILS % 0.1 % (0.0-2.0); HEMATOCRIT 36.5 % (37.0-47.0); HEMOGLOBIN 12.4 g/dl (12.0-16.0); LYMPHOCYTES # 1.5 10^3/ul (0.8-2.9); LYMPHOCYTES % 20.4 % (15.0-51.0); MEAN CORPUSCULAR HEMOGLOBIN 27.5 pg (29.0-33.0); MEAN CORPUSCULAR HGB CONC 33.8 g/dl (32.0-37.0); MEAN CORPUSCULAR VOLUME 81.3 fl (82.0-101.0); MEAN PLATELET VOLUME 8.1 fl (7.4-10.4); MONOCYTE # 0.2 10^3/ul (0.3-0.9); MONOCYTES % 2.1 % (0.0-11.0); NEUTROPHIL # 5.7 10^3/ul (1.6-7.5); NEUTROPHILS % 77.4 % (39.0-77.0); PLATELET COUNT 276 10^3/UL (140-440); RED BLOOD COUNT 4.49 10^6/ul (4.20-5.40); RED CELL DISTRIBUTION WIDTH 16.4 % (11.5-14.5); UNCORRECTED WBC 7.3 10^3/ul (4.8-10.8); WHITE BLOOD COUNT 7.3 10^3/ul (4.8-10.8)
[2016-07-07 07:03] LABS: CREATININE 0.52 mg/dl (0.44-1.00)
[2016-07-07 07:18] LABS: POTASSIUM 4.6 mmol/L (3.5-5.1)
[2016-07-07 07:20] LABS: CREATININE 0.51 mg/dl (0.44-1.00)
[2016-07-07 07:21] LABS: CALCIUM 9.1 mg/dl (8.4-10.2); CONDITION 1; LH ANALYZER COMMENTS 1
[2016-07-07 07:48] VITALS: BP 154/77; RESP 20
[2016-07-07] MEDS: LEVETIRACETAM 250 MG TAB PO SCH (08:10)
[2016-07-07] MEDS: metFORMIN 500 MG TAB PO SCH ×2 (08:11→17:44)
[2016-07-07] MEDS: METOPROLOL (XL) 50 MG TAB PO SCH (08:11)
[2016-07-07] MEDS: DEXAMETHASONE 4 MG TAB PO SCH ×2 (08:11→17:44)
[2016-07-07] MEDS: NATEGLINIDE 60 MG TAB PO SCH ×3 (08:11→17:44)
[2016-07-07] MEDS: INSULIN ASPART [NOVOLOG] 3 ML PEN SC SCH ×6 (08:16→17:41)
--- NOTE | 2016-07-07 12:55 | CONS ---
Date/Time of Note Date/Time of Note DATE: 07/07/16 TIME: 12:51 Assessment/Plan Assessment/Plan Chief Complaint/Hosp Course The patient is an 81 year old female with a history of colon cancer in 1989 s/p surgery and chemo at [facility], and history of breast cancer s/p mastectomy and chemo in 1999 at [facility] with Dr. Mcclain. 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 # Metastatic breast adenocarcinoma, [id number]+/[id number], s/p excisional biopsy of a solitary brain metastasis from the right parietal lobe 06/16/16, thought not resectable surgically in its entirety. - Plan was for adjuvant radiation 2 weeks post-operatively however radiation oncology consult was not requested prior to this. - Appreciate radiation oncology recommendations from Dr. Janny Zhang - Plan for repeat MRI of the brain with and without contrast today and MRI of the total spine per Dr. Zhang, with thin slices for radiation treatment planning purposes. Should evidence of LM carcinomatosis exist, then whole brain XRT would be recommended. However, in the absence of any further disease , this patient may be a candidate for focal radiation therapy or radiosurgery - Continue steroids (dexamethasone 4 mg PO Q12 hours per Dr. Zhang) and antiseizure medication. Rx for dexamethasone given to nurse. - Query whether patient has meningeal carcinomatosis. Prior imaging discussed with Dr. Manzano who did see evidence of leptomeningeal enhancement that could be consistent with leptomeningeal disease though not diagnostic. Though LP negative for malignant cells, often not that sensitive and repeat LPs may be needed to make the diagnosis. Will await repeat MRI and MRI of the total spine Per Dr. Zhang, irradiation of the entire craniospinal axis is associated with substantial morbidity. However, focal deposits of leptomeningeal disease in the spine can be addressed with focal XRT - CT CAP 06/14/16 with contrast that showed no definite evidence of systemic disease. Would need to repeat restaging scans, likely with PET/CT as an outpatient. 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 Case discussed with Dr. Mcclain who felt that this was reasonable as well, especially given possible concern for leptomeningeal disease. Given location, patient's family plans to follow up with me after discharge. CA 27-29 and CA 15 -3 pending. - Will request case management auth for outpatient appointment with Dr. Ana Hernandez after discharge and for outpatient PET/CT scan after radiation complete # Small underlying epidural hematoma measuring no more than 3 mm. She was seen by neurosrugery and felt that this small hyperdensity (< 5mm) is unlikely to be new and most likely visible due to variations in imaging acquisition protocol; even if it is new hemorrhage thought not clinically significant per Dr. Logan. It was stable stable/unchanged on follow up imaging. Recommendation was to avoid anticoagulation for 48 hours and follow up with neurology for possible seizure breakthrough. No plan for neurosurgical intervention. I spoke with patient's son Jp ([phone]) and daughter Dakota ) on the phone. Problems: Consultation Date/Type/Reason Admit Date/Time Jun 28, 2016 at 14:34 Initial Consult Date 07/06/16 Type of Consultation: Hematology/Oncology Referring Provider: TRACY VASQUEZ MD 24 HR Interval Summary Free Text/Dictation Patient doing well, no complaints. Was awaiting MRI when I saw her this morning. Exam/Review of Systems Vital Signs Vitals Vital Signs Date Time Temp Pulse Resp B/P Pulse Ox O2 Delivery O2 Flow Rate FiO2 07/07/16 07:48 98.2 70 20 154/77 93 07/05/16 14:06 Room Air Intake and Output 07/06/16 07/06/16 07/07/16 15:00 23:00 07:00 Intake Total 720 ml 200 ml Balance 720 ml 200 ml Exam Constitutional: alert, oriented Psych: no complaints Head: normocephalic Neck: non-tender, supple Respiratory: clear to auscultation Cardiovascular: regular rate and rhythm Gastrointestinal: non-tender, soft Musculoskeletal: nl extremities to inspection Neurological: [employer]ACHINE OPERATOR II-XII intact, nl strength Results Result Diagram: 07/07/16 0505 07/07/16 0505 Results 24 hrs Laboratory Tests Test 07/06/16 16:50 07/06/16 21:08 07/07/16 02:18 07/07/16 05:05 Bedside Glucose 140 305 H 254 H Anion Gap 22 H Basophils # 0.0 Basophils % 0.1 Blood Morphology Comment Blood Urea Nitrogen 12 Calcium Level 9.1 Carbon Dioxide Level 25 Chloride Level 100 Creatinine 0.51 Eosinophils # 0.0 Eosinophils % 0.0 Glucose Level 269 H Hematocrit 36.5 L Hemoglobin 12.4 Lymphocytes # 1.5 Lymphocytes % 20.4 Mean Corpuscular Hemoglobin 27.5 L Mean Corpuscular Hemoglobin Concent 33.8 Mean Corpuscular Volume 81.3 L Mean Platelet Volume 8.1 Monocytes # 0.2 L Monocytes % 2.1 Neutrophils # 5.7 Neutrophils % 77.4 H Nucleated Red Blood Cells # 0.0 Nucleated Red Blood Cells % 0.0 Platelet Count 276 Potassium Level 4.6 Red Blood Count 4.49 Red Cell Distribution Width 16.4 H Sodium Level 142 White Blood Count 7.3 Test 07/07/16 07:48 Bedside Glucose 256 H Medications Medications Current Medications Morphine Sulfate (morphine) 2 mg Q4H PRN IV PAIN; Start 06/24/16 at 12:00 Ondansetron HCl (Zofran Inj) 4 mg Q6H PRN IV NAUSEA AND/OR VOMITING; Start at 12:00 Metoprolol Succinate (Toprol Xl) 50 mg DAILY PO Last administered on 07/07/16 08:11; Admin Dose 50 MG; Start 06/25/16 at 09:00 Atorvastatin Calcium (Lipitor) 20 mg HS PO Last administered on 07/06/16 21:09 ; Admin Dose 20 MG; Start 06/24/16 at 21:00 Acetaminophen (Tylenol Tab) 650 mg Q6H PRN PO PAIN AND OR ELEVATED TEMP Last administered on 06/27/16 12:41; Admin Dose 650 MG; Start 06/24/16 at 17:00 Diagnostic Test (Pha) (Accucheck) 1 ea 02 XX Last administered on 07/03/16 02: 00; Admin Dose 1 EA; Start 06/25/16 at 02:00 Miscellaneous Information 1 ea NOTE XX ; Start 06/24/16 at 17:00 Glucose (Glutose) 15 gm Q15M PRN PO DECREASED GLUCOSE; Start 12/31/16 at 17:00 Glucose (Glutose) 22.5 gm Q15M PRN PO DECREASED GLUCOSE; Start 06/24/16 at 17: 00 Dextrose (D50w Syringe) 25 ml Q15M PRN IV DECREASED GLUCOSE; Start 06/24/16 at 17:00 Dextrose (D50w Syringe) 50 ml Q15M PRN IV DECREASED GLUCOSE; Start 06/24/16 at 17:00 Glucagon (Glucagen) 1 mg Q15M PRN IM DECREASED GLUCOSE; Start 06/24/16 at 17: 00 Glucose (Glutose) 15 gm Q15M PRN BUCCAL DECREASED GLUCOSE; Start 06/24/16 at 17:00 Tramadol HCl (Ultram) 50 mg Q6H PRN PO PAIN Last administered on 06/26/16 08:46 ; Admin Dose 50 MG; Start 06/26/16 at 08:30 Levetiracetam (Keppra) 750 mg BID PO Last administered on 07/07/16 08:10; Admin Dose 750 MG; Start 06/27/16 at 21:00 Dexamethasone (Decadron) 4 mg BID PO Last administered on 07/07/16 08:11; Admin Dose 4 MG; Start 07/06/16 at 15:03 TRACY VASQUEZ MD Jul 07, 2016 12:54
--- NOTE | 2016-07-07 13:44 | RADRPT ---
PROCEDURE: MRI cervical spine without and with contrast CLINICAL INDICATION: Breast cancer, meningeal disease TECHNIQUE: Multiplanar MRI of the cervical spine without and with contrast was performed on a 3.0 T scanner utilizing the following sequences: T1-weighted, T2-weighted, STIR, GRE, and postcontrast T 1-weighted. 10 mL Magnevist intravenous contrast were administered. COMPARISON: None available. FINDINGS: There is preservation of the lordosis of the cervical spine. Alignment is intact. The vertebral kishor dies are maintained in height. No marrow edema or suspicious lesion is seen. Marrow signal intensi ty is unremarkable. There is anterior spondylosis at C5-6 and C6-7. Decreased disk intranuclear T2 -weighted signal intensity is seen down to the C4-5 level. The cervical cord is within normal limits for signal intensity and caliber at all levels. No abnormal medullary or leptomeningeal enhancemen t is identified. The craniocervical junction is unremarkable. A 1.2 cm cyst without enhancement is n oted in the left parotid gland. C2-3: The disk is maintained in height. No disk bulge or herniation is identified. There is no paul tral canal stenosis or foraminal narrowing. C3-4: The disk is maintained in height. No disk bulge or herniation is identified. There is no paul tral canal stenosis or foraminal narrowing. C4-5: The disk is maintained in height. There is a broad posterior disk/osteophyte with associated annular high intensity zone/fissure on the left. There is mild central canal stenosis. There are u ncovertebral osteophytes and facet arthropathy with mild to moderate bilateral foraminal narrowing. C5-6: The disk is maintained in height. There is a broad posterior disk/osteophyte with annular hig h intensity zone/root on the left. There is mild to moderate central canal stenosis. There are unc overtebral osteophytes and facet arthropathy with mild-moderate left foraminal narrowing. C6-7: The disk is maintained in height. There is a broad posterior disk/osteophyte with mild to mod erate central canal stenosis. There are uncovertebral osteophytes and facet arthropathy with mild-m oderate left foraminal narrowing. C7-T1: The disk is maintained in height. No disk bulge or herniation is identified. There is no ce ntral canal stenosis or foraminal narrowing. IMPRESSION: 1. No findings suspicious for metastatic disease in the cervical spine. 2. Cervical spondylosis. 3. Mild to moderate central canal stenosis at C5-6 and C6-7, and mild central canal stenosis at C4- 5. 4. Multilevel mild to moderate foraminal narrowing outlined in detail above. RPTAT: VV .Ricardo Taylor MD, Date Time Electronically viewed and signed by .Ricardo Taylor MD, on 07/07/2016 13:44 .O/
--- NOTE | 2016-07-07 13:46 | RADRPT ---
PROCEDURE: MRI thoracic spine without and with contrast CLINICAL INDICATION: Breast cancer, meningeal disease TECHNIQUE: Multiplanar MRI of the thoracic spine without and with contrast was performed on a 3.0 T scanner utilizing the following sequences: T1-weighted, T2-weighted, STIR and postcontrast T1-weigh abhijeet. 10 mL Magnevist intravenous contrast were administered. COMPARISON: None available. FINDINGS: There is preservation of the kyphosis of the thoracic spine. Alignment is intact. The vertebral kishor dies are maintained in height. No marrow edema or suspicious lesion is seen. A hemangioma is seen i n the T7 body. The thoracic cord is within normal limits for signal intensity and caliber at all le vels. There are areas of artifactual increased T1-weighted signal intensity in the subarachnoid spa aurora. No abnormal medullary or definite leptomeningeal enhancement is identified. There is mild to moderate multilevel disk space narrowing with mild anterior spondylosis down to the T10-11 level. N o disk bulge or herniation is identified. There is multilevel facet arthropathy at T2-3 through T12 -L1. There is no central canal stenosis or foraminal narrowing. IMPRESSION: 1. No definite findings suspicious for metastatic disease in the thoracic spine. 2. Thoracic spondylosis. RPTAT: VV .Ricardo Taylor MD, Date Time Electronically viewed and signed by .Ricardo Taylor MD, on 07/07/2016 13:45 .O/
--- NOTE | 2016-07-07 14:01 | RADRPT ---
PROCEDURE: MRI lumbar spine without and with contrast CLINICAL INDICATION: Breast cancer, meningeal disease TECHNIQUE: Multiplanar MRI of the lumbar spine without and with contrast was performed on a 3.0 T [facility] utilizing the following sequences: T1-weighted, T2-weighted, STIR and postcontrast T1-weighte d. 10 mL Magnevist intravenous contrast were administered. COMPARISON: None. FINDINGS: There is preservation of the lordosis of the lumbar spine. There is approximately 4 mm degenerative anterolisthesis of L5 on S1. The vertebral bodies are maintained in height. No marrow edema or jerez spicious lesion is seen. Noted are hemangiomas in the L1, L2 and L4 bodies. There is multilevel ant erior spondylosis and decreased disk intranuclear T2-weighted signal intensity. The tip of the conus medullaris is visible at the L1-2 level and appears unremarkable. No abnormal medullary or leptome ningeal enhancement is identified. Noted is a hemorrhagic cyst in the left kidney measuring up to 2 .5 cm with fluid - hematocrit level. L1-L2: The disc is maintained in height. No disc bulge or herniation is identified. There is no c entral canal stenosis or foraminal narrowing. L2-L3: The disc is maintained in height. There is posterior disk bulging and facet arthropathy wit h ligamentum flavum hypertrophy. There is no central canal stenosis. There is mild bilateral risa inal narrowing. L3-L4: The disc is maintained in height. There is posterior disk bulging with an associated annula r high intensity zone - fissure centrally, and facet arthropathy with ligamentum flavum hypertrophy. There is no central canal stenosis. There is mild right foraminal narrowing. L4-L5: The disc is maintained in height. There is posterior disk bulging with a subtle 1 mm centra l disk protrusion, and facet arthropathy with ligamentum flavum hypertrophy. There is mild central canal stenosis. There is lateral recess narrowing on the left. There may be compression of the tra versing left L5 nerve root.. There is mild bilateral foraminal narrowing. L5-S1: The disc is maintained in height. There is posterior disk bulging and facet arthropathy wit h ligamentum flavum hypertrophy. There is no central canal stenosis. There is moderate - severe ri ght and moderate left foraminal narrowing. IMPRESSION: 1. No findings suspicious for metastatic disease in the lumbar spine. 2. Lumbar spondylosis, with grade 1 anterolisthesis at L5-S1. 3. Mild central canal stenosis at L4-5 with left lateral recess narrowing, possible compression of the traversing left L5 nerve root. 4. Multilevel foraminal narrowing outlined in detail above. RPTAT: VV .Ricardo Taylor MD, Date Time Electronically viewed and signed by .Ricardo Taylor MD, on 07/07/2016 14:01 .O/
--- NOTE | 2016-07-07 14:27 | RADRPT ---
PROCEDURE: MRI Brain without and with contrast. CLINICAL INDICATION: Breast cancer, meningeal disease TECHNIQUE: Multiplanar MRI of the brain without and with contrast was performed on a 3.0 T scanner with the following sequences obtained: T1-weighted, T2-weighted/FLAIR, diffusion weighted (with ADC map), GRE, and postcontrast T1-weighted. 10 ml Magnevist intravenous contrast were administered. COMPARISON: CT brain 06/24/2016, MRI brain 06/10/2016 FINDINGS: Again demonstrated is a right parietal craniotomy with subjacent persistent very small extra-axial c ollection with associated susceptibility which may reflect blood, possibly minimal residual pneumoce phalus. The collection measures up to 3 mm in thickness, without significant interval change. There is minimal residual hemorrhage in the subjacent peripheral right parietal lobe. There is persistent dural thickening and enhancement involving the posterior falx, extending over th e right parietal convexity up to the frontoparietal junction, and subjacent irregular leptomeningeal enhancement. Underlying parenchymal involvement is difficult to exclude. There is also slight dural thickening and enhancement extending to the parasagittal left parietal convexity. These findings a re not significantly changed in extent. Flow voids in the adjacent superior sagittal sinus are soham sly preserved suggesting patency. There is residual vasogenic edema in the underlying right parieta l and adjacent posterior right frontal lobe which appear somewhat improved since the CT. There is a lso suggestion of minimal vasogenic edema at the contralateral frontoparietal junction which is unch anged since the prior MRI. No acute/recent ischemic infarction or interval intracranial hemorrhage is identified. No other ext ra-axial fluid collection is seen. The ventricles and sulci are mildly enlarged, compatible with generalized volume loss. There is a 1 cm cystic lesion in the lower ventral left thalamic - upper left midbrain region with m ild local mass effect, but no enhancement. It follows CSF signal intensity. This is most likely a benign tumefactive perivascular space, rather than a chronic lacunar infarct. This is unchanged. No significant midline shift is identified. Mild areas of increased T2 / FLAIR signal intensity are present in the periventricular and deep whit e matter, nonspecific but likely related to chronic small vessel ischemic changes. Flow voids are identified in the proximal intracranial arteries and rest of the dural sinuses sugges ting patency. The mastoid air cells and paranasal sinuses are grossly clear. IMPRESSION: 1. Status post right parietal craniotomy with persistent very small subjacent extra-axial collectio n with blood/possible pneumocephalus, with the collection measuring up to 3 mm, not significantly ch anged. 2. Minimal residual hemorrhage in the subjacent right parietal lobe. 3. Persistent dural thickening and enhancement at the posterior falx extending over the right parie miguel convexity up to the frontoparietal junction with associated irregular leptomeningeal enhancement , along with slight dural involvement extending to the parasagittal left parietal region. 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 4. Vasogenic edema in the right frontoparietal region, somewhat improved since the prior CT. There is also suggestion of minimal vasogenic edema in the left frontoparietal region, unchanged since th e prior MRI. 5. Mild generalized volume loss, with mild chronic small vessel ischemic changes. 6. 1 cm cystic nonenhancing lesion at the left thalamic - midbrain region, likely a tumefactive per ivascular space. RPTAT: VV .Ricardo Taylor MD, MD Date Time Electronically viewed and signed by .Ricardo Taylor MD, on 07/07/2016 14:26 .O/
[2016-07-07] MEDS ORDERED: NOVO3I SC (15:17)
[2016-07-07] MEDS ORDERED: LEVE250T66 PO (15:17)
[2016-07-07] MEDS ORDERED: DEC4 PO (15:17)
--- NOTE | 2016-07-07 15:49 | CONS ---
Date/Time of Note Date/Time of Note DATE: 07/07/16 TIME: 15:44 Consult Date/Type/Reason Admit Date/Time Jun 28, 2016 at 14:34 Initial Consult Date 07/06/16 Type of Consultation: Hematology/Oncology Reason for Consultation brain metastasis with imaging findings concerning for leptomeningeal carcinomatosis Ordering Provider: TRACY CASTILLO MD Subjective I The patient is feeling well overall and her complaints regarding LLE weakness are unchanged. . Objective Vital Signs Date Time Temp Pulse Resp B/P Pulse Ox O2 Delivery O2 Flow Rate FiO2 07/07/16 07:48 98.2 70 20 154/77 93 07/05/16 14:06 Room Air Intake and Output 07/06/16 07/06/16 07/07/16 15:00 23:00 07:00 Intake Total 720 ml 200 ml Balance 720 ml 200 ml Results/Medications Result Diagram: 07/07/16 0505 07/07/16 0505 Results 24 hrs Laboratory Tests Test 07/06/16 16:50 07/06/16 21:08 07/07/16 02:18 07/07/16 05:05 Bedside Glucose 140 305 H 254 H Anion Gap 22 H Basophils # 0.0 Basophils % 0.1 Blood Morphology Comment Blood Urea Nitrogen 12 Calcium Level 9.1 Carbon Dioxide Level 25 Chloride Level 100 Creatinine 0.51 Eosinophils # 0.0 Eosinophils % 0.0 Glucose Level 269 H Hematocrit 36.5 L Hemoglobin 12.4 Lymphocytes # 1.5 Lymphocytes % 20.4 Mean Corpuscular Hemoglobin 27.5 L Mean Corpuscular Hemoglobin Concent 33.8 Mean Corpuscular Volume 81.3 L Mean Platelet Volume 8.1 Monocytes # 0.2 L Monocytes % 2.1 Neutrophils # 5.7 Neutrophils % 77.4 H Nucleated Red Blood Cells # 0.0 Nucleated Red Blood Cells % 0.0 Platelet Count 276 Potassium Level 4.6 Red Blood Count 4.49 Red Cell Distribution Width 16.4 H Sodium Level 142 White Blood Count 7.3 Test 07/07/16 07:48 Bedside Glucose 256 H Medications Current Medications Morphine Sulfate (morphine) 2 mg Q4H PRN IV PAIN; Start 06/24/16 at 12:00 Ondansetron HCl (Zofran Inj) 4 mg Q6H PRN IV NAUSEA AND/OR VOMITING; Start at 12:00 Metoprolol Succinate (Toprol Xl) 50 mg DAILY PO Last administered on 07/07/16 08:11; Admin Dose 50 MG; Start 06/25/16 at 09:00 Atorvastatin Calcium (Lipitor) 20 mg HS PO Last administered on 07/06/16 21:09 ; Admin Dose 20 MG; Start 06/24/16 at 21:00 Acetaminophen (Tylenol Tab) 650 mg Q6H PRN PO PAIN AND OR ELEVATED TEMP Last administered on 06/27/16 12:41; Admin Dose 650 MG; Start 06/24/16 at 17:00 Diagnostic Test (Pha) (Accucheck) 1 ea 02 XX Last administered on 07/03/16 02: 00; Admin Dose 1 EA; Start 06/25/16 at 02:00 Miscellaneous Information 1 ea NOTE XX ; Start 06/24/16 at 17:00 Glucose (Glutose) 15 gm Q15M PRN PO DECREASED GLUCOSE; Start 06/24/16 at 17:00 Glucose (Glutose) 22.5 gm Q15M PRN PO DECREASED GLUCOSE; Start 06/24/16 at 17: 00 Dextrose (D50w Syringe) 25 ml Q15M PRN IV DECREASED GLUCOSE; Start 06/24/16 at 17:00 Dextrose (D50w Syringe) 50 ml Q15M PRN IV DECREASED GLUCOSE; Start 06/24/16 at 17:00 Glucagon (Glucagen) 1 mg Q15M PRN IM DECREASED GLUCOSE; Start 06/24/16 at 17: 00 Glucose (Glutose) 15 gm Q15M PRN BUCCAL DECREASED GLUCOSE; Start 06/24/16 at 17:00 Tramadol HCl (Ultram) 50 mg Q6H PRN PO PAIN Last administered on 06/26/16 08:46 ; Admin Dose 50 MG; Start 06/26/16 at 08:30 Levetiracetam (Keppra) 750 mg BID PO Last administered on 07/07/16 08:10; Admin Dose 750 MG; Start 06/27/16 at 21:00 Dexamethasone (Decadron) 4 mg BID PO Last administered on 07/07/16 08:11; Admin Dose 4 MG; Start 07/06/16 at 15:03 Assessment/Plan Chief Complaint/Hosp Course 81F s/p excisional biopsy of a solitary brain metastasis from the right parietal lobe in 05/2016. The dural based lesion could not be resected in its entirety and adjuvant radiation was recommended. The initial MRI at presentation was concerning for leptomeningeal involvement. On examination today, she is neurologically intact with the exception of mild left lower extremity weakness. Plan: 1) repeat MRI of the brain with and without contrast if tolerated by the patient - please order thin slices for radiation treatment planning purposes - should evidence of LM carcinomatosis exist, then whole brain XRT would be recommended - however, in the absence of any further disease, this patient may be a candidate for focal radiation therapy or radiosurgery 2) consider MRI of the total spine -irradiation of the entire craniospinal axis is associated with substantial morbidity. However, focal deposits of leptomeningeal disease in the spine can be addressed with focal XRT 3) consider initiating dexamethasone and continue antiseizure medication 4) radiation cannot be given concurrently or within several months of intrathecal chemotherapy. Please discuss with radiation oncology prior to planning intrathecal chemotherapy 5) follow up appointment for CT simulation [facility]2016 [facility] organized with Meka in case management 6) Family contacts: son Jp ([phone]) and daughter Dakota ([phone]) Problems: Additional Assessment/Plan I reviewed results of patient's MRIs over the phone with her daughter including poor prognosis of meningeal carcinomatosis and the necessity of whole brain radiation . reviewed the indications, risks, beneifts and side effects of whole brain radiation with the patient's daughter including but not limited to fatigue, cataract formation, osyhophagia/dysphagia, otalgia, alopecia and short term memory loss. The daughter understands and agrees to proceed. The is currently at [facility] for CT simulation and her daughter will join us here to help her mother with the consent. We also discussed Namenda to reduced the risk/extent of short term memory loss with whole brain radiation, and I have recommended they review the prescription with Dr Castillo and PMD prior to starting that medication. After the CT simulation, the patient will be transferred back to [facility] from where she will be discharged home. Her whole brain XRT will be carried out as an outpatient. MAXIMILIANO MCCLOUD MD Jul 07, 2016 15:48
--- NOTE | 2016-07-11 13:18 | DS ---
DATE OF ADMISSION: 06/28/2016 DATE OF DISCHARGE: 07/07/2016 FINAL DIAGNOSES: 1. Intracranial hemorrhage. 2. 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 3. Hypertension. 4. Diabetes mellitus with hyperglycemia. 5. History of breast and colon cancer, status post left mastectomy. BRIEF HISTORY: The patient is an 81-year-old [place] female who was previously admitted intracrani al mass, status post biopsy by Dr. Sarmiento and patient was in acute rehabilitation for recovery. T he patient complained of increased headache evidence of acute intracranial hemorrhage and patient wa s transferred to the hospital. HOSPITAL COURSE: The patient was evaluated by Dr. Logan in neurosurgery consultation with recomme ndation of continued neurological observation. The patient's repeat CT was performed and showed a t iny less than 5 mm focus of hypodensity in the resection cavity, which showed stable, possibly small hypodensity which is considered unlikely to be new and is most likely more visible due to variation s in imaging. The patient was avoided anticoagulation for 48 hours with close neuro checks q.2h. an d patient continued on Keppra. No neurosurgical intervention was recommended at this time. The pat ient's condition overall improved. The patient was evaluated by physical therapy and by acute rehabilitation. However, the patient mana eared to be too functional for returning to acute rehabilitation. The patient was also per family r equest evaluated by her oncologist. Per conversation with patient's daughter, the patient was follo wed oncology, Dr. Mcclain in [place]; however, the patient's daughter requested patient to continue to follow up with oncology and possibly a radiation oncologist in the [facility] when patient leaves. That will be easier for the family to transport her to the treatments. The patient was ev aluated by Dr. Denise Castillo in oncology consultation. The patient was evaluated by Janny Zhang in radiation oncology. The patient underwent MRI mapping and patient was discharged home. CONDITION ON DISCHARGE: Hemodynamically stable. ACTIVITIES: As patient tolerates. DIET: An 1800 ADA low fat, low cholesterol diet. DISCHARGE MEDICATIONS: Patient was given: 1. Decadron 4 mg p.o. b.i.d. for 14 days. 2. Keppra 750 mg p.o. b.i.d. for 30 days. 3. NovoLog 4 units subQ with meals. The patient is to continue on: 1. Toprol-XL. 2. Nateglinide. 3. Glimepiride. 4. Simvastatin. FOLLOWUP: The patient is to follow up with his primary care physician in 1 to 2 weeks, and the girish ent to follow up with Dr. Hernandez's office, hematology/oncology and follow up with Dr. Zhang in rad iation/oncology and follow up with radiation/oncology. Interdisciplinary plan of care was established for this patient. Plan of care was discussed with Dr Luciano Keating. Dictated By: KELLEE PARK SHIPPING LEAD PERSON for DIANA KEATING MD SR/NTS Conf#: [id number] DID#: [id number]
== END 2016-07-07 18:05 | disposition home or self-care (01) | DRG 64 ==
LOC: INTOOBSV 08:10 → TEL 08:10 → OBSVTOIN 06-28 14:34 → MS2 07-05 13:58
PROVIDERS: ADMIT Internal Medicine; ATTEND Internal Medicine
DX: I62.9 Nontraumatic intracranial hemorrhage, unspecified (principal); G93.6 Cerebral edema; C79.32 Secondary malignant neoplasm of cerebral meninges; E11.65 Type 2 diabetes mellitus with hyperglycemia; M25.511 Pain in right shoulder; Z85.3 Personal history of malignant neoplasm of breast; I10 Essential (primary) hypertension; Z85.038 Personal history of other malignant neoplasm of large intestine; Z17.0 Estrogen receptor positive status [ER+]
CPT/HCPCS: 70553; 72156; 72157; 72158; 80048; 82565; 82962; 84520; 85025; 86300; 87081; 95819; 97162; 97165; 99217; G0378; J1815

== ENCOUNTER 2016-07-17 15:08 | Inpatient (IN) | payer MEDICARE, OTHER ==
[~2016-07-17] VITALS: Ht 162.6 cm; Wt 83.9 kg
[~2016-07-17 15:08] MED LIST changes: +DEC4 PO; +LEVE250T66 PO; -LEVE500T8 PO; +NOVO3I SC
--- NOTE | 2016-07-17 15:39 | ERA ---
ER Documentation Chief Complaint Date/Time DATE: 07/17/16 TIME: 15:38 Chief Complaint SLURRED SPEECH ON SUNDAY. HPI The patient is a 81-year-old female, presenting to the ER because of slurred speech, weakness and high blood glucose after her second brain radiation therapy 3 days ago. She was seen by her radiation oncologist who sent her to the ER. She denies fever, syncope, near syncope, cough, neck pain, chest pain, dyspnea, abdominal pain, vomiting, diarrhea, constipation. She does not smoke, drink Past medical history: History of metastatic brain cancer, history of colon cancer, diabetes mellitus, dyslipidemia, hypertension Past surgical history: Left mastectomy ROS All systems reviewed and are negative except as per history of present illness. Medications Home Meds Active Scripts Insulin Aspart* (Novolog Insulin Pen*) 100 Unit/Ml Soln, 4 UNIT SC WITH MEALS BEDTIME for 14 Days Prov:KELLEE PARK 07/07/16 Levetiracetam* (Keppra*) 250 Mg Tab, 750 MG PO BID for 30 Days, TAB Prov:KELLEE PARK 07/07/16 Dexamethasone* (Decadron*) 4 Mg Tab, 4 MG PO BID for 14 Days, TAB Prov:KELLEE PARK 07/07/16 Reported Medications Simvastatin (Simvastatin) 20 Mg Tablet, 20 MG PO QHS, #30 TAB 06/10/16 Metoprolol Succinate* (Toprol XL*) 50 Mg Tab.er.24h, 50 MG PO DAILY, #30 TAB 06/10/16 Nateglinide* (Nateglinide*) 60 Mg Tablet, 60 MG PO AC MEALS, TAB 06/10/16 Glimepiride* (Glimepiride*) 4 Mg Tablet, 4 MG PO WITH BREAKFAST, TAB 06/10/16 Allergies Allergies: Coded Allergies: No Known Allergy (Unverified , 07/17/16) PMhx/Soc History of Surgery: No Anesthesia Reaction: No Hx Neurological Disorder: Yes (Brain mass, s/p craniotomy) Hx Respiratory Disorders: No Hx Cardiac Disorders: No Hx Psychiatric Problems: No Hx Miscellaneous Medical Probl: Yes (Intracranial bleed with underlying tumor, breast ca) Hx Alcohol Use: No Hx Substance Use: No Hx Tobacco Use: No Physical Exam Vitals Vital Signs Date Time Temp Pulse Resp B/P Pulse Ox O2 Delivery O2 Flow Rate FiO2 07/17/16 17:17 60 20 113/67 99 Room Air 07/17/16 15:14 98.5 65 20 113/63 95 Physical Exam Const: No acute distress. Head: Atraumatic. Eyes: Normal Conjunctiva. ENT: Normal External Ears, Nose and Mouth. Neck: Full range of motion. No meningismus. Resp: Clear to auscultation bilaterally. Cardio: Regular rate and rhythm, no murmurs. Abd: Soft, non distended, normal bowel sounds, non tender. Skin: No petechiae or rashes. Back: No midline or flank tenderness. Ext: No cyanosis, or edema. Neur: Awake and alert. No focal deficit Psych: Normal Mood and Affect. Result Diagram: 07/17/16 1650 07/17/16 1650 Results 24 hrs Laboratory Tests Test 07/17/16 15:20 07/17/16 16:50 Bedside Glucose 393mg/dL Activated Partial Thromboplast Time 21.5Sec Anion Gap 24 Basophils # 0.010^3/ul Basophils % 0.1% Blood Morphology Comment Blood Urea Nitrogen 50mg/dl Calcium Level 9.6mg/dl Carbon Dioxide Level 25mmol/L Chloride Level 93mmol/L Creatinine 0.81mg/dl Eosinophils # 0.010^3/ul Eosinophils % 0.0% Glucose Level 373mg/dl Hematocrit 43.7% Hemoglobin 14.5g/dl INR International Normalized Ratio 0.95 Lymphocytes # 1.910^3/ul Lymphocytes % 14.0% Mean Corpuscular Hemoglobin 27.3pg Mean Corpuscular Hemoglobin Concent 33.2g/dl Mean Corpuscular Volume 82.4fl Mean Platelet Volume 9.3fl Monocytes # 0.510^3/ul Monocytes % 3.7% Neutrophils # 11.310^3/ul Neutrophils % 82.2% Nucleated Red Blood Cells # 0.010^3/ul Nucleated Red Blood Cells % 0.0/100WBC Platelet Count 39367^3/UL Potassium Level 3.8mmol/L Prothrombin Time 12.7Sec Prothrombin Time Ratio 1.0 Red Blood Count 5.3010^6/ul Red Cell Distribution Width 16.3% Sodium Level 138mmol/L White Blood Count 13.810^3/ul Current Medications Medications (Trade) Dose Ordered Sig/Sebastian Route PRN Reason Start Time Stop Time Status Last Admin Dose Admin Sodium Chloride (NS) 1,000 ml @ 1,000 mls/hr Q1H ONCE IV 07/17/16 18:00 07/17/16 18:59 UNV Insulin Human Regular (Humulin R) 10 unit ONCE ONCE SC 07/17/16 18:00 07/17/16 18:01 UNV Procedures/MDM EKG: Read by emergency physician Rate/Rhythm: Normal Sinus Rhythm 62 beats per min QRS, ST, T-waves: No ST elevation, no T wave inversion, nonspecific ST abnormality Impression: Abnormal EKG [place] [address] Radiology Main Line: [phone] DIAGNOSTIC IMAGING REPORT Patient: AMANDA SUTHERLAND : 1935 Age: 81 Sex: F MR #: [id number] DOS: 07/17/16 1611 Ordering MD: JEMMA LITTLE MD Location: E/R Room/Bed: PROCEDURE: XR Chest. CLINICAL INDICATION: Syncope TECHNIQUE: Chest AP portable. COMPARISON: 06/09/2016 FINDINGS: The mediastinal structures are unremarkable. There is calcification of the thoracic aorta (consistent with atherosclerosis). There is mild cardiomegaly. The pulmonary vascularity is normal. The lung leo are unremarkable. No consolidation is identified. The pleural spaces are unremarkable. There are senescent changes of the axial skeleton. IMPRESSION: Calcification of the thoracic aorta (consistent with atherosclerosis) Mild cardiomegaly No active intrathoracic disease RPTAT: HGDB .Jr He MD, Date Time Electronically viewed and signed by .Jr He MD, on 07/17/2016 16:52 .B/ CC: JEMMA LITTLE MD [place] [address] Radiology Main Line: [phone] DIAGNOSTIC IMAGING REPORT Patient: AMANDA SUTHERLAND : 1935 Age: 81 Sex: F MR #: [id number] DOS: 07/17/16 1611 Ordering MD: JEMMA LITTLE MD Location: E/R Room/Bed: PROCEDURE: CT Brain without contrast. CLINICAL INDICATION: Syncope TECHNIQUE: A CT of the brain was performed on a multidetector CT scanner utilizing axial sections from the skull base through the vertex without contrast. Images were reviewed on a high-resolution PACS workstation. Exam CTDI = 43.58 mGy and the DLP = 630.20 mGy-cm. One or more of the following dose reduction techniques were used: Automated exposure control Adjustment of the mA and/or kV according to patient size. Use of iterative reconstruction technique. COMPARISON: MRI brain 07/07/2016 FINDINGS: There are postoperative changes of prior right parietal craniotomy. There is an area of hypoattenuation in the right parietal lobe vasogenic edema versus early encephalomalacia. There is no significant cortical volume loss. There is persistent hyperdense thickening of the posterior falx over the right parietal convexity. There is mild generalized volume loss. There is no evidence of intracranial hemorrhage, mass effect or midline shift. No abnormal intra-axial or extra-axial fluid collections are seen. The density of the brain is normal and the michael/white matter differentiation is well preserved. Mild patchy diffuse deep white matter microangiopathic ischemic change is seen. prominent perivascular space is again noted in the left thalamic/midbrain. The osseous structures and visualized paranasal sinuses are unremarkable. Vascular calcifications are identified. IMPRESSION: 1. No intracranial hemorrhage, mass effect or midline shift. 2. Status post prior right parietal craniotomy. Small area of hypoattenuation in the right parietal lobe which has improved compared to priors. This area might represent residual vasogenic edema versus encephalomalacia. 3. 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 4. Mild generalized atrophy. Mild microangiopathic ischemic change. 5. Intracranial atherosclerosis. RPTAT: BB .Marlee Lawson MD, MD Date Time Electronically viewed and signed by .Marlee Lawson MD, MD on 07/17/2016 16:47 .O/ CC: JEMMA LITTLE MD MEDICAL MAKING DECISION: The patient is a 81-year-old female, presenting with acute slurred speech, acute diabetic hyperglycemia, acute dehydration. She was treated with 1 L normal saline and 10 units Regular Insulin subcutaneous with good response. The differential diagnoses considered include but are not limited to subarachnoid hemorrhage, occult trauma, CVA, meningitis, encephalitis , hypertension, tension, migraine, cluster, narcotic withdrawal, cervical spine disease. Departure Diagnosis: Primary Impression: Slurred speech Additional Impressions: Diabetes mellitus with hyperglycemia Dehydration Condition: Stable Comments Brain MRI is pending per Dr. Benito's request I discussed the findings with the patient. I discussed the patient with his physician who was made aware of the lab, the treatment, the patient condition, the pending brain MRI. The patient is admitted to telemetry at 5:40 PM JEMMA LITTLE MD Jul 17, 2016 15:39
--- NOTE | 2016-07-17 16:47 | RADRPT ---
PROCEDURE: CT Brain without contrast. CLINICAL INDICATION: Syncope TECHNIQUE: A CT of the brain was performed on a multidetector CT scanner utilizing axial sections from the skull base through the vertex without contrast. Images were reviewed on a high-resolution [employer] workstation. Exam CTDI = 43.58 mGy and the DLP = 630.20 mGy-cm. One or more of the following dose reduction techniques were used: Automated exposure control Adjustment of the mA and/or kV according to patient size. Use of iterative reconstruction technique. COMPARISON: MRI brain 07/07/2016 FINDINGS: There are postoperative changes of prior right parietal craniotomy. There is an area of hypoattenua tion in the right parietal lobe vasogenic edema versus early encephalomalacia. There is no signific ant cortical volume loss. There is persistent hyperdense thickening of the posterior falx over the right parietal convexity. There is mild generalized volume loss. There is no evidence of intracrani al hemorrhage, mass effect or midline shift. No abnormal intra-axial or extra-axial fluid collectio ns are seen. The density of the brain is normal and the michael/white matter differentiation is well p reserved. Mild patchy diffuse deep white matter microangiopathic ischemic change is seen. promin ent perivascular space is again noted in the left thalamic/midbrain. The osseous structures and vis ualized paranasal sinuses are unremarkable. Vascular calcifications are identified. IMPRESSION: 1. No intracranial hemorrhage, mass effect or midline shift. 2. Status post prior right parietal craniotomy. Small area of hypoattenuation in the right parieta l lobe which has improved compared to priors. This area might represent residual vasogenic edema ve rsus encephalomalacia. 3. Persistent dural thickening of the posterior falx in keeping with known history of meningeal car cinomatosis. 4. Mild generalized atrophy. Mild microangiopathic ischemic change. 5. Intracranial atherosclerosis. RPTAT: BB .Marlee Lawson MD, Date Time Electronically viewed and signed by .Marlee Lawson MD, on 07/17/2016 16:47 .O/
--- NOTE | 2016-07-17 16:52 | RADRPT ---
PROCEDURE: XR Chest. CLINICAL INDICATION: Syncope TECHNIQUE: Chest AP portable. COMPARISON: 06/09/2016 FINDINGS: The mediastinal structures are unremarkable. There is calcification of the thoracic aorta (consiste nt with atherosclerosis). There is mild cardiomegaly. The pulmonary vascularity is normal. The jamal ng leo are unremarkable. No consolidation is identified. The pleural spaces are unremarkable. There are senescent changes of the axial skeleton. IMPRESSION: Calcification of the thoracic aorta (consistent with atherosclerosis) Mild cardiomegaly No active intrathoracic disease RPTAT: HGDB .Jr He MD, Date Time Electronically viewed and signed by .Jr He MD, on 07/17/2016 16:52 .B/
[2016-07-17 17:18] LABS: BASOPHILS % 0.1 % (0.0-2.0); HEMATOCRIT 43.7 % (37.0-47.0); HEMOGLOBIN 14.5 g/dl (12.0-16.0); LYMPHOCYTES # 1.9 10^3/ul (0.8-2.9); MEAN CORPUSCULAR HEMOGLOBIN 27.3 pg (29.0-33.0); MEAN CORPUSCULAR HGB CONC 33.2 g/dl (32.0-37.0); MEAN CORPUSCULAR VOLUME 82.4 fl (82.0-101.0); MEAN PLATELET VOLUME 9.3 fl (7.4-10.4); MONOCYTE # 0.5 10^3/ul (0.3-0.9); MONOCYTES % 3.7 % (0.0-11.0); NEUTROPHIL # 11.3 10^3/ul (1.6-7.5); NEUTROPHILS % 82.2 % (39.0-77.0); PLATELET COUNT 262 10^3/UL (140-440); RED CELL DISTRIBUTION WIDTH 16.3 % (11.5-14.5); UNCORRECTED WBC 13.8 10^3/ul (4.8-10.8); WHITE BLOOD COUNT 13.8 10^3/ul (4.8-10.8)
[2016-07-17 17:20] LABS: INR 0.95; PROTIME 12.7 Sec (12.2-14.2)
[2016-07-17 17:21] LABS: CONDITION 1; LH ANALYZER COMMENTS 1; PARTIAL THROMBOPLASTIN TIME 21.5 Sec (25.0-35.0)
[2016-07-17 17:23] LABS: POTASSIUM 3.8 mmol/L (3.5-5.1)
[2016-07-17 17:25] LABS: CREATININE 0.81 mg/dl (0.44-1.00)
[2016-07-17 17:26] LABS: CALCIUM 9.6 mg/dl (8.4-10.2)
[2016-07-17] MEDS ORDERED: SOD CHLORIDE 0.9% 1,000 ML IV ONE (18:00)
[2016-07-17] MEDS ORDERED: INSULIN REGULAR, HUMAN 100 UNIT/1 ML 3ML VIAL SC ONE (18:00)
--- NOTE | 2016-07-17 21:42 | RADRPT ---
PROCEDURE: MRI Brain with and without contrast. CLINICAL INDICATION: : Slurred speech TECHNIQUE: An MRI of the brain was performed on a high-resolution hi-definition MRI scanner utiliz ing the following sequences: Sagittal T1 weighted, axial T2 weighted, axial FLAIR, coronal GRE, and axial diffusion weighted with ADC mapping. Additionally, postcontrast axial and coronal T1-weighted sequences were performed after 10 cc of Magnevist were given intravenously without complication. COMPARISON: CT brain 07/17/2016 and brain MRI 07/07/2016 FINDINGS: The visualized scalp and calvarium are again remarkable for a status post right parietal craniotomy changes with persistent 3 mm extra-axial fluid collection comprising a combination of blood and flui d. The visualized orbits demonstrate sequela of prior cataract surgery. The bilateral paranasal si nuses, mastoid air cells and middle ear cavities are clear. On the FLAIR and T2-weighted sequences, again noted are ovoid foci of hyperintensity in the bilatera l subcortical white matter, right posterior frontal and anterior parietal lobe, bilateral centrum se miovale, bilateral periventricular white matter compatible with mild chronic small vessel ischemic d isease. The right posterior frontal and parietal lobe hyperintensity is compatible with vasogenic e kaley subjacent to the patient's known pachymeningeal and leptomeningeal carcinomatosis. Following c ontrast administration, again noted is a nodular dural and leptomeningeal thickening along the poste rior falx in the right greater than left parietal convexity extending anteriorly to the frontal renan etal junction. The largest nodular component in the right posterior parietal convexity measures 6 m illimeter AP by 7 mm transverse by 10 mm in superior inferior dimensions. Again noted is the T1 and FLAIR hypointense corresponding to T2 hyperintense 1 cm non-enhancing left anterior thalamic and mid brain lesion which mildly protrudes into the third ventricle. This is unchanged from prior stud y and most compatible with a prior thalamic lacunar infarct or giant perivascular space. The superi or sagittal sinus appears to enhance normally and has normal signal flow void on T2-weighted sequenc es indicative of patency. No evidence for restricted diffusion is noted on diffusion weighted sequences. No high signal abnor malities are seen on the diffusion-weighted images to suggest the presence of acute ischemia or rece nt infarct. No evidence for midline shift or herniation is present. The ventricles sulci and cist erns are prominent compatible with mild diffuse volume loss. No hypointense signal abnormalities ar e seen on the GRE images to suggest the presence of blood degradation products. Normal flow voids a re visible in the proximal intracranial arteries and dural sinuses, indicating patency. IMPRESSION: 1. No evidence for acute infarcts or hemorrhage. 2. Status post right parietal craniotomy with persistent 3 mm extra-axial fluid collection unchange d from prior studies. 3. 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 4. Patent superior sagittal sinus at this time. 5. Right frontoparietal vasogenic edema may represent a component of an enhancing neoplastic extens ion. 6. 1 cm non-enhancing left thalamic and mid brain lesion may represent prior lacunar infarct or a g iant perivascular space. 7. No evidence for herniation or hydrocephalous. 8. Mild diffuse volume loss. RPTAT: HDC .Oksana Sims MD, MD Date Time Electronically viewed and signed by .Oksana Sims MD, on 07/17/2016 21:42 .C/
[2016-07-17] MEDS ORDERED: MAGNESIUM HYDROXIDE 30ML CUP PO PRN (22:30)
[2016-07-17] MEDS ORDERED: ONDANSETRON 4 MG INJ IV PRN (22:30)
[2016-07-17] MEDS ORDERED: ACETAMINOPHEN 325 MG TAB PO PRN (22:30)
[2016-07-17] MEDS ORDERED: NACL 0.9% 3 ML SYG IV SCH (22:30)
[2016-07-17] MEDS ORDERED: GLUCOSE GEL 15 GRAM TUBE PO PRN ×2 (23:00)
[2016-07-17] MEDS ORDERED: GLUCOSE GEL 15 GRAM TUBE BUCCAL PRN (23:00)
[2016-07-17] MEDS ORDERED: GLUCAGON 1 MG INJ IM PRN (23:00)
[2016-07-17] MEDS ORDERED: DEXTROSE 50% 50 ML SYRINGE IV PRN ×2 (23:00)
[2016-07-17] MEDS: DEXAMETHASONE 4 MG TAB PO SCH (23:11)
[2016-07-17] MEDS: ATORVASTATIN 10 MG TAB PO SCH (23:11)
[2016-07-17] MEDS: LEVETIRACETAM 250 MG TAB PO SCH (23:11)
[2016-07-18] MEDS: ACCUCHECK AT 2AM (Patients on SS coverage) XX SCH (02:00)
[2016-07-18 06:25] LABS: BASOPHILS % 0.2 % (0.0-2.0); EOSINOPHILS % 0.1 % (0.0-7.0); HEMATOCRIT 39.8 % (37.0-47.0); HEMOGLOBIN 13.5 g/dl (12.0-16.0); LYMPHOCYTES # 1.8 10^3/ul (0.8-2.9); LYMPHOCYTES % 17.1 % (15.0-51.0); MEAN CORPUSCULAR HEMOGLOBIN 27.5 pg (29.0-33.0); MEAN CORPUSCULAR HGB CONC 33.9 g/dl (32.0-37.0); MEAN CORPUSCULAR VOLUME 81.2 fl (82.0-101.0); MEAN PLATELET VOLUME 9.3 fl (7.4-10.4); MONOCYTE # 0.4 10^3/ul (0.3-0.9); MONOCYTES % 3.8 % (0.0-11.0); NEUTROPHIL # 8.4 10^3/ul (1.6-7.5); NEUTROPHILS % 78.8 % (39.0-77.0); PLATELET COUNT 201 10^3/UL (140-440); RED BLOOD COUNT 4.91 10^6/ul (4.20-5.40); UNCORRECTED WBC 10.7 10^3/ul (4.8-10.8); WHITE BLOOD COUNT 10.7 10^3/ul (4.8-10.8)
[2016-07-18 06:38] LABS: CONDITION 1; LH ANALYZER COMMENTS 1
[2016-07-18 06:45] LABS: ADD UMIC NO; URINE BILIRUBIN (Dip) NEGATIVE (NEGATIVE); URINE BLOOD (Dip) NEGATIVE (NEGATIVE); URINE COLOR LT. YELLOW (YELLOW); URINE GLUCOSE (Dip) >=1000 % (NEGATIVE); URINE KETONES (Dip) NEGATIVE (NEGATIVE); URINE LEUKOCYTE ESTERASE (Dip) NEGATIVE (NEGATIVE); URINE NITRITE (Dip) NEGATIVE (NEGATIVE); URINE TOTAL PROTEIN (Dip) NEGATIVE (NEGATIVE); URINE UROBILINOGEN (Dip) 0.2 E.U./dL (0.1-1.0)
[2016-07-18 07:01] LABS: POTASSIUM 3.8 mmol/L (3.5-5.1)
[2016-07-18 07:03] LABS: CREATININE 0.62 mg/dl (0.44-1.00)
[2016-07-18] MEDS: PANTOPRAZOLE (EC) 40 MG TAB PO SCH (07:03)
[2016-07-18 07:04] LABS: CALCIUM 8.7 mg/dl (8.4-10.2)
[2016-07-18] MEDS: INSULIN ASPART [NOVOLOG] 3 ML PEN SC SCH ×4 (09:09→22:15)
[2016-07-18] MEDS: INSULIN GLARGINE [LANtus] 3 ML PEN SC SCH (09:10)
[2016-07-18] MEDS: LEVETIRACETAM 250 MG TAB PO SCH ×2 (09:12→21:59)
[2016-07-18] MEDS: METOPROLOL (XL) 50 MG TAB PO SCH (09:13)
[2016-07-18] MEDS: DEXAMETHASONE 4 MG TAB PO SCH ×2 (09:14→22:00)
[2016-07-18 16:38] VITALS: TEMP 98.2
[2016-07-18 17:10] VITALS: PULSE 48
[2016-07-18 17:13] VITALS: Ht 162.6 cm; Wt 83.9 kg
[2016-07-18 17:15] VITALS: BP 164/76; RESP 18
[2016-07-18] MEDS ORDERED: NATEGLINIDE 60 MG TAB PO SCH (19:00)
[2016-07-18] MEDS: SOD CHLORIDE 0.9% 1,000 ML IV SCH (19:10)
[2016-07-18 20:15] VITALS: BP 117/75; RESP 21
[2016-07-18 20:43] VITALS: PULSE 54
[2016-07-18 20:44] VITALS: PULSE 54
--- NOTE | 2016-07-18 20:50 | HP ---
DATE OF ADMISSION: 07/18/2016 CHIEF COMPLAINT ON ADMISSION: Apparently episodes of slurred speech a few days ago and hyperglycemi a. 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 The patient reports that it only happened 1 day, yesterday, Sunday. The patient has been undergoing radiation therapy. She has 15 sessions. She already did 2. Yesterday she went to her radiation oncologist's office, Dr. Zhang, and when she was there, she was noted to have elevated blood sugars up to the 500s. She was sent to the [facility] department. In the emergency department, there was reported history of slurred speech apparen tly and increased weakness. She therefore had CAT scan of the brain, MRI of the brain which did not show any acute findings, only showed the known metastatic carcinomatosis with dural metastasis. He r blood sugars upon arrival where around 500, now is down to 230. She has been started on subcutane ous insulin. The patient reports that she did eat cake apparently prior to this episode of elevated blood sugar, and she has been on Decadron. Currently she is doing much better. She is ambulating actually with her walker to the bathroom. No dizziness. No nausea, no vomiting. Very good appetit e. No slurred speech. Speech is within normal. Her blood sugars again are in the mid 200s now. H er glimepiride is discontinued. She is restarted on her Starlix along with Lantus subcutaneous. Sh e will be maintained on IV fluids with a possible discharge plan by tomorrow so that she can resume her outpatient radiation therapy. She denies any fevers, chills, nausea, vomiting, recent infection . Her strength is at baseline. ALLERGIES: NO KNOWN ALLERGIES. PAST MEDICAL HISTORY: 1. Diabetes mellitus. 2. Hypertension. 3. Metastatic breast cancer with metastasis to the brain, currently going through radiation therapy . 4. History of colon cancer. 5. Previous history of breast cancer, status post left mastectomy. REVIEW OF SYSTEMS: As per HPI. SOCIAL HISTORY: The patient lives with family. There is no tobacco or alcohol use. OUTPATIENT MEDICATIONS: 1. Toprol-XL 50 mg p.o. daily. 2. Simvastatin 20 mg p.o. at bedtime. 3. Keppra 750 mg p.o. b.i.d. 4. Decadron 4 mg p.o. b.i.d. 5. Glimepiride 4 mg p.o. q.a.c. However, the patient denies taking it. 6. Insulin aspart 4 units subcutaneously at bedtime. 7. Starlix 60 mg p.o. q.a.c. PHYSICAL EXAMINATION: VITAL SIGNS: Temperature is 98.4. Heart rate of 68 beats per minute, sinus rhythm. Blood pressure 164/76. The patient is saturating 92% on room air. GENERAL: She is alert and oriented x4, not in acute distress, primarily Divehi speaking. She is at her baseline currently. HEENT: Pupils are equally round and reactive to light. Extraocular muscles are intact. Anicteric sclerae. NECK: No JVD, no thyromegaly noted. HEART: Regular rate and rhythm. No murmur, rubs or gallops. LUNGS: Clear to auscultation bilaterally. ABDOMEN: Soft, nontender, nondistended. Bowel sounds are present. EXTREMITIES: No edema, clubbing or cyanosis. NEUROLOGIC: Grossly intact with actually good strength, 5/5 upper and lower extremities currently. She uses a walker for ambulation and steady gait. LABORATORY DATA: White blood cell count is 10.7, hemoglobin 13.5, hematocrit 39.8, platelet count o f 201. Chemistry with a sodium of 142, potassium 3.8, chloride 103, bicarbonate 26, BUN 41, creatin ine 0.62. Blood sugar 236; it's been slightly better controlled. Hemoglobin A1c 9.6. Calcium 9.7. INR 0.95, PT 12.7, PTT 21.5. Urinalysis is negative. EKG shows normal sinus rhythm, nonspecific T waves, no acute findings. RADIOLOGICAL DATA: 1. Chest x-ray shows mild cardiomegaly, no active intrathoracic disease. 2. 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 3. MRI of the brain shows no evidence of acute infarct or hemorrhages; status post right parietal c raniotomy with persistent 3 mm extra-axial fluid collection, unchanged; leptomeningeal carcinomatosi s involving the right greater than the left parafalcine and lateral parietal convexity with extensio n anterior to the frontoparietal region, not significantly changed; right frontoparietal vasogenic e kaley; 1 cm nonenhancing left thalamic and midbrain lesion which may represent prior lacunar infarct or ____ perivascular space; no evidence of herniation or hydrocephalus; mild diffuse volume loss. ASSESSMENT AND PLAN: This is an 81-year-old female with: 1. 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 She is currently u ndergoing radiation therapy. She has 15 sessions total; she already completed 2. She is hemodynami sienna stable, neurologically stable currently. I will continue her current dose of Decadron. [employer], I will call Dr. Zhang to confirm if she is to stay on the current dosing of 4 mg b.i.d. Cont inue blood sugar control. Will start her on Lantus at this point. Continue sliding scale insulin a nd Starlix for now. Continue Keppra for seizure disorder and will monitor her mental status overnig ht. 2. Hypertension. Continue home medication. 3. Diabetes mellitus with hyperglycemic episode, likely secondary to dietary indiscretion but also to the Decadron she is on. Again, will put her on Lantus b.i.d. dosing for now, resume Starlix, sli ding scale insulin, monitor blood sugars overnight. 4. Seizure disorder. Continue Keppra. 5. Hyperlipidemia. Continue simvastatin. 6. Prophylaxis. Protonix for GI prophylaxis. SCDs to lower extremities for DVT prophylaxis and en courage ambulation. DISPOSITION: IV fluids, blood sugar control overnight with hopefully discharge planning by tomorrow morning. Dictated By: MINDY MARS/PRIYA Conf#: [id number] DID#: [id number]
[2016-07-18] MEDS ORDERED: INSULIN GLARGINE [LANtus] 3 ML PEN SC SCH (21:00)
[2016-07-18] MEDS: NATEGLINIDE 60 MG TAB PO SCH (21:58)
[2016-07-18] MEDS: ATORVASTATIN 10 MG TAB PO SCH (21:58)
[2016-07-19] VITALS (12 sets, daily range): BP systolic 100–140; BP diastolic 50–83; PULSE 45–59; RESP 19–20
[2016-07-19] MEDS: ACCUCHECK AT 2AM (Patients on SS coverage) XX SCH (02:06)
[2016-07-19 06:31] LABS: BASOPHILS % 0.1 % (0.0-2.0); EOSINOPHILS % 0.1 % (0.0-7.0); HEMATOCRIT 38.6 % (37.0-47.0); LYMPHOCYTES # 1.7 10^3/ul (0.8-2.9); LYMPHOCYTES % 16.9 % (15.0-51.0); MEAN CORPUSCULAR HEMOGLOBIN 27.5 pg (29.0-33.0); MEAN CORPUSCULAR HGB CONC 33.6 g/dl (32.0-37.0); MEAN CORPUSCULAR VOLUME 81.9 fl (82.0-101.0); MONOCYTE # 0.5 10^3/ul (0.3-0.9); MONOCYTES % 4.7 % (0.0-11.0); NEUTROPHIL # 7.8 10^3/ul (1.6-7.5); NEUTROPHILS % 78.2 % (39.0-77.0); PLATELET COUNT 186 10^3/UL (140-440); RED BLOOD COUNT 4.71 10^6/ul (4.20-5.40); RED CELL DISTRIBUTION WIDTH 16.7 % (11.5-14.5)
[2016-07-19] MEDS: NATEGLINIDE 60 MG TAB PO SCH ×2 (06:32→12:44)
[2016-07-19] MEDS: PANTOPRAZOLE (EC) 40 MG TAB PO SCH (06:32)
[2016-07-19 06:34] LABS: CONDITION 1; LH ANALYZER COMMENTS 1; POTASSIUM 3.9 mmol/L (3.5-5.1)
[2016-07-19 06:36] LABS: BILIRUBIN,INDIRECT 0.1 mg/dl (0-1.1); BILIRUBIN,TOTAL 0.1 mg/dl (0.2-1.3); CREATININE 0.57 mg/dl (0.44-1.00)
[2016-07-19 06:37] LABS: ALBUMIN/GLOBULIN RATIO 1.25; TOTAL PROTEIN 5.4 g/dl (6.1-8.1)
[2016-07-19 06:38] LABS: CALCIUM 8.3 mg/dl (8.4-10.2)
[2016-07-19 06:45] LABS: MAGNESIUM 2.1 mg/dl (1.7-2.5); PHOSPHORUS 3.2 mg/dl (2.5-4.9)
[2016-07-19] MEDS: SOD CHLORIDE 0.9% 1,000 ML IV SCH (07:48)
[2016-07-19] MEDS: INSULIN ASPART [NOVOLOG] 3 ML PEN SC SCH ×2 (07:54→12:49)
[2016-07-19] MEDS: DEXAMETHASONE 4 MG TAB PO SCH (09:17)
[2016-07-19] MEDS: LEVETIRACETAM 250 MG TAB PO SCH (09:17)
[2016-07-19] MEDS: METOPROLOL (XL) 50 MG TAB PO SCH (09:19)
[2016-07-19] MEDS: INSULIN GLARGINE [LANtus] 3 ML PEN SC SCH (09:21)
--- NOTE | 2016-07-19 11:13 | PN ---
Date/Time of Note Date/Time of Note DATE: 07/19/16 TIME: 11:10 Assessment/Plan VTE Prophylaxis VTE Prophylaxis Intervention: SCD's Lines/Catheters IV Catheter Type (from [facility] Saline Lock Urinary Cath still in place: No Assessment/Plan Assessment/Plan 81-year-old female with: 1. 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 She is currently undergoing radiation therapy. She has 15 sessions total; she already completed 2. She is hemodynamically stable, neurologically stable currently. Discussed with Dr Everton Mcclain, will decreased Decadron to 2 mg po bid Patient to resume brain radiation, whole brain preferred to local Continue Keppra for seizure disorder. 2. Hypertension. Continue home medication. Bu will decrease Toprol XL to 25 mg 3. Diabetes mellitus with hyperglycemic episode, likely secondary to dietary indiscretion but also to the Decadron she is on. Discussed with Dr Everton Mcclain and will decrease Decadron to 2 mg po bid Continue Lantus at 12 QAM and 10 QHS since Decadron to be decreased and need to be compliant with ADA diet Resume Starlix at home Follow up with PCP closely and Home Health RN visits to help with management 4. Seizure disorder. Continue Keppra. 5. Hyperlipidemia. Continue simvastatin. Prophylaxis. Protonix for GI prophylaxis. SCDs to lower extremities for DVT prophylaxis and encourage ambulation. DISPOSITION: D/c home today with outpatient follow up with PCP and Radiation Oncology. Subjective 24 Hr Interval Summary Free Text/Dictation Patient doing well No complaints, strength back to baseline and to resume radiation treatments as outpatient BG better but still up in mid 250's D/c home today with Lantus and decreased dose of Decadron Exam/Review of Systems Vital Signs Vitals Vital Signs Date Time Temp Pulse Resp B/P Pulse Ox O2 Delivery O2 Flow Rate FiO2 07/19/16 08:19 46 07/19/16 07:00 98.3 20 123/83 96 07/18/16 17:15 Room Air Intake and Output 07/18/16 07/18/16 07/19/16 15:00 23:00 07:00 Intake Total 1100 ml Output Total 800 ml Balance -800 ml 1100 ml Exam Constitutional: alert, oriented, well developed Respiratory: clear to auscultation, normal air movement Cardiovascular: nl pulses, regular rate and rhythm Gastrointestinal: non-tender, soft Musculoskeletal: nl extremities to inspection Extremities: normal pulses, other (no edema, clubbing or cyanosis ) Neurological: MANAGER CARDIOLOGY II-XII intact, nl mental status, nl speech, nl strength (at baseline ) Results Result Diagram: 07/19/16 0520 07/19/16 0520 Results 24 hrs Laboratory Tests Test 07/18/16 11:42 07/18/16 18:12 07/18/16 20:17 07/19/16 01:47 Bedside Glucose 306 H 237 H 281 H 275 H Test 07/19/16 05:20 07/19/16 07:42 Alanine Aminotransferase (ALT/SGPT) 27 Albumin 3.0 L Albumin/Globulin Ratio 1.25 Alkaline Phosphatase 59 Anion Gap 16 Aspartate Amino Transf (AST/SGOT) 12 L Basophils # 0.0 Basophils % 0.1 Blood Morphology Comment Blood Urea Nitrogen 35 H Calcium Level 8.3 L Carbon Dioxide Level 23 Chloride Level 104 Creatinine 0.57 Direct Bilirubin 0.00 Eosinophils # 0.0 Eosinophils % 0.1 Globulin 2.40 Glucose Level 280 H Hematocrit 38.6 Hemoglobin 13.0 Indirect Bilirubin 0.1 Lymphocytes # 1.7 Lymphocytes % 16.9 Magnesium Level 2.1 Mean Corpuscular Hemoglobin 27.5 L Mean Corpuscular Hemoglobin Concent 33.6 Mean Corpuscular Volume 81.9 L Mean Platelet Volume 9.0 Monocytes # 0.5 Monocytes % 4.7 Neutrophils # 7.8 H Neutrophils % 78.2 H Nucleated Red Blood Cells # 0.0 Nucleated Red Blood Cells % 0.0 Phosphorus Level 3.2 Platelet Count 186 Potassium Level 3.9 Red Blood Count 4.71 Red Cell Distribution Width 16.7 H Sodium Level 139 Total Bilirubin 0.1 L Total Protein 5.4 L White Blood Count 10.0 Bedside Glucose 273 H Medications Medications Current Medications Ondansetron HCl (Zofran Inj) 4 mg Q6H PRN IV NAUSEA AND/OR VOMITING; Start at 22:30 Acetaminophen (Tylenol Tab) 650 mg Q6H PRN PO PAIN LEVEL 1-3 OR FEVER; Start at 22:30 Magnesium Hydroxide (Milk Of Mag) 30 ml DAILY PRN PO CONSTIPATION; Start at 22:30 Pantoprazole (Protonix Tab) 40 mg DAILY@06 PO Last administered on 07/19/16 06 :32; Admin Dose 40 MG; Start 07/18/16 at 06:00 Diagnostic Test (Pha) (Accucheck) 1 ea 02 XX Last administered on 07/19/16 02: 06; Admin Dose 1 EA; Start 07/18/16 at 02:00 Miscellaneous Information 1 ea NOTE XX ; Start 07/17/16 at 23:00 Glucose (Glutose) 15 gm Q15M PRN PO DECREASED GLUCOSE; Start 07/17/16 at 23:00 Glucose (Glutose) 22.5 gm Q15M PRN PO DECREASED GLUCOSE; Start 07/17/16 at 23: 00 Dextrose (D50w Syringe) 25 ml Q15M PRN IV DECREASED GLUCOSE; Start 07/17/16 at 23:00 Dextrose (D50w Syringe) 50 ml Q15M PRN IV DECREASED GLUCOSE; Start 07/17/16 at 23:00 Glucagon (Glucagen) 1 mg Q15M PRN IM DECREASED GLUCOSE; Start 07/17/16 at 23:00 Glucose (Glutose) 15 gm Q15M PRN BUCCAL DECREASED GLUCOSE; Start 07/17/16 at 23 :00 Dexamethasone (Decadron) 4 mg BID PO Last administered on 07/19/16 09:17; Admin Dose 4 MG; Start 07/17/16 at 23:00 Levetiracetam (Keppra) 750 mg BID PO Last administered on 07/19/16 09:17; Admin Dose 750 MG; Start 07/17/16 at 23:00 Atorvastatin Calcium 10 mg 10 mg DAILY@21 PO Last administered on 07/18/16 21: 58; Admin Dose 10 MG; Start 07/17/16 at 22:53 Sodium Chloride (NS) 1,000 ml @ 75 mls/hr [id number] IV Last administered on 07/18 19:10; Admin Dose 75 MLS/HR; Start 07/18/16 at 19:00 Metoprolol Succinate (Toprol Xl) 25 mg DAILY PO ; Start 07/20/16 at 09:00; Status UNV Insulin Glargine (Lantus) 15 unit QAM SC ; Start 07/20/16 at 09:00; Status UNV Insulin Glargine (Lantus) 15 unit HS SC ; Start 07/19/16 at 21:00; Status UNV ANIRUDHN'DEYE F Jul 19, 2016 11:12
--- NOTE | 2016-07-19 11:41 | PDOCDIS ---
Discharge Instructions CONDITION Patient Condition: Stable HOME CARE INSTRUCTIONS: Special Diet: Carb controlled ACTIVITY: Activity Restrictions: Slowly Increase Activity FOLLOW UP/APPOINTMENTS Appointments Follow up with PCP within 1 week Follow up with Radiation Oncology within 1 week BG monitoring at home MINDY OLEARY Jul 19, 2016 11:41
[2016-07-19] MEDS ORDERED: METO25TA7 PO (11:54)
[2016-07-19] MEDS ORDERED: DEC2 PO (11:54)
[2016-07-19] MEDS ORDERED: LANT3I SC ×3 (11:54→12:51)
[2016-07-19] MEDS ORDERED: NATE60TA PO (11:54)
[2016-07-19] MEDS ORDERED: LINA5TAB PO (12:51)
[2016-07-19] MEDS ORDERED: LINAGLIPTIN 5 MG TABLET PO SCH (13:00)
[2016-07-19] MEDS ORDERED: INSULIN GLARGINE [LANtus] 3 ML PEN SC ONE (14:00)
--- NOTE | 2016-07-19 16:56 | DS ---
DATE OF ADMISSION: 07/18/2016 DATE OF DISCHARGE: 07/19/2016 CHIEF COMPLAINT ON ADMISSION: Slurred speech and hypoglycemia. BRIEF HISTORY OF PRESENT ILLNESS: This is an 81-year-old female with history of diabetes mellitus, hypertension, metastatic breast cancer to the brain with leptomeningeal carcinomatosis, who had been undergoing radiation therapy and was noted to have episodes of hypoglycemia and apparently after ra diation therapy, was noted to have some slurred speech and weakness. The patient was sent to the em ergency department for evaluation. HOSPITAL COURSE: The patient has multiple neurological imaging, including CAT scan and MRI that did not show any new lesions or changes that are significant. She is on Decadron already. I did discu ss the dosing with ____ who has recommended to decrease it to 2 mg q.12h. She is diabetic and s he has had some dietary indiscretion lately. She was eating cake and pizza, according to family, wh ile on Decadron and with uncontrolled blood sugars already. Therefore, on presentation, her blood s ugars were up to 500. They are a little better controlled currently, but after discussion with the life educator, we have agreed on putting the patient on Lantus 20 units q.a.m. She is to contin ue her Starlix at 120 mg p.o. q.a.c. and we will also add Tradjenta 5 mg daily for blood sugar contr ol. I have updated patient's daughter regarding some of the medication changes. Also, she was note d to have episodes of bradycardia with heart rate down to the low 50s. She is on Toprol-XL. I hav e decreased the dose to 25 mg daily from 50. The patient had ambulated here. She is eating well, n o slurred speech is noted. She will be discharged home later this afternoon on her new insulin salvador men. DISPOSITION: Discharge home. DISCHARGE CONDITION: Stable. DISCHARGE DIET: Diabetic diet. DISCHARGE ACTIVITY: Resume home activity. FOLLOWUP: 1. The patient is to follow up with her oncologist, Dr. Hernandez, as an outpatient. 2. Follow up with radiation oncology, Dr. Zhang, 3. Follow up with primary care physician regarding her diabetes mellitus and dosage of medications. DISCHARGE DIAGNOSES: 1. 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 2. Hypertension. 3. Diabetes mellitus with hypoglycemic episode. 4. Seizure disorder. 5. Hyperlipidemia. 6. Episode of slurred speech and weakness, resolved. DISCHARGE MEDICATIONS: 1. Dexamethasone 2 mg p.o. b.i.d. 2. Lantus 20 units subcutaneously daily. 3. Tradjenta 5 mg p.o. daily. 4. Toprol-XL 25 mg p.o. daily. 5. Starlix 120 mg p.o. q.a.c. 6. Keppra 750 mg p.o. b.i.d. 7. Simvastatin 20 mg p.o. at bedtime. Dictated By: MINDY MARS/PRIYA Conf#: [id number] DID#: [id number]
[2016-07-19] MEDS ORDERED: INSULIN GLARGINE [LANtus] 3 ML PEN SC SCH (21:00)
[2016-07-19] MEDS ORDERED: DEXAMETHASONE 2 MG TAB PO SCH (21:00)
[2016-07-20] MEDS ORDERED: INSULIN GLARGINE [LANtus] 3 ML PEN SC SCH ×2 (09:00)
[2016-07-20] MEDS ORDERED: METOPROLOL (XL) 25 MG TAB PO SCH (09:00)
== END 2016-07-19 16:50 | disposition home or self-care (01) | DRG 55 ==
LOC: E/R 15:08 → TEL 07-18 16:59
PROVIDERS: ADMIT Internal Medicine; ATTEND Internal Medicine
DX: C79.31 Secondary malignant neoplasm of brain (principal); C78.6 Secondary malignant neoplasm of retroperitoneum and peritoneum; E11.65 Type 2 diabetes mellitus with hyperglycemia; R00.1 Bradycardia, unspecified; C50.912 Malignant neoplasm of unspecified site of left female breast; Z85.038 Personal history of other malignant neoplasm of large intestine; I10 Essential (primary) hypertension; E78.5 Hyperlipidemia, unspecified; G40.909 Epilepsy, unspecified, not intractable, without status epilepticus; R47.81 Slurred speech; Z79.4 Long term (current) use of insulin
CPT/HCPCS: 36415; 70450; 70553; 71010; 80048; 80053; 81003; 82962; 83036; 83735; 84100; 85025; 85610; 85730; 87081; 87086; 93005; 96372; J1815; J7030